=== PATIENT | female | born 1980 | race Caucasian/White ===

== ENCOUNTER 2022-05-27 12:52 | Emergency (ER) | payer OTHER, SELFPAY ==
--- NOTE | ~2022-05-27 | XR_ITS ---
EXAMINATION: XR foot LT min 3V, XR ankle LT min 3V CLINICAL INFORMATION: Reason for Exam lateral foot pain s/p injury COMPARISON: None. TECHNIQUE: AP, lateral, and oblique views of the foot and 2 views of the ankle FINDINGS: Acute transversely oriented extra-articular fracture of the base of the fifth metatarsal diaphysis. Joint spaces are maintained without significant degenerative change. Accessory ossicle at the base of the fifth metatarsal. Mild soft tissue swelling along the lateral aspect of the ankle. No joint effusion. XR/XR ankle LT min 3V IMPRESSION: 1. Acute transversely oriented extra-articular fracture of the base of the fifth metatarsal diaphysis. 2. Mild soft tissue swelling along the lateral aspect of the ankle.
--- NOTE | ~2022-05-27 | XR_ITS ---
EXAMINATION: XR foot LT min 3V, XR ankle LT min 3V CLINICAL INFORMATION: Reason for Exam lateral foot pain s/p injury COMPARISON: None. TECHNIQUE: AP, lateral, and oblique views of the foot and 2 views of the ankle FINDINGS: Acute transversely oriented extra-articular fracture of the base of the fifth metatarsal diaphysis. Joint spaces are maintained without significant degenerative change. Accessory ossicle at the base of the fifth metatarsal. Mild soft tissue swelling along the lateral aspect of the ankle. No joint effusion. XR/XR foot LT min 3V IMPRESSION: 1. Acute transversely oriented extra-articular fracture of the base of the fifth metatarsal diaphysis. 2. Mild soft tissue swelling along the lateral aspect of the ankle.
[2022-05-27 12:59] VITALS: BP 122/80; PULSE 92; RESP 16; TEMP 36.4; O2SAT 100; BMI 23.4
--- NOTE | 2022-05-27 13:00 | ED_ITS ---
HPI - Extremity Injury (Lower) General Chief Complaint: Extremity Injury, Lower <MARGARITA Wylie - Last Filed: 05/27/22 13:01> Stated Complaint: L leg inj 05/27/22 <MARGARITA Wylie - Last Filed: 05/27/22 13:01> Time Seen by Provider: 05/27/22 15:49 <MARGARITA Wylie - Last Filed: 05/27/22 13:01> Source: patient <Jazzy Goodrich CNP - Last Filed: 05/27/22 17:24> Mode of arrival: ambulatory <Jazzy Goodrich CNP - Last Filed: 05/27/22 17:24> Limitations: no limitations <Jazzy Goodrich CNP - Last Filed: 05/27/22 17:24> History of Present Illness HPI Narrative: Patient is a 41-year-old female who presents emergency department for evaluation of left lateral foot pain. She states that she slipped down approximately 3 stairs prior to arrival, mechanical fall. She has been unable to bear weight, reporting swelling and tenderness to this lateral aspect. Also reporting pain to lateral malleolus. Denies any prior injury such as fracture dislocation. States currently trying to become , however began menses to day. She is additionally requesting screening for sexually transmitted infections discussed with patient will screen for chlamydia and gonorrhea, further screening would require outpatient follow-up with primary care provider, currently asymptomatic. Declines prophylactic treatment. Advised she will be made aware of positive results by phone call within a few days, she may also axis her results via the patient portal. <Jazzy Goodrich CNP - Last Filed: 05/27/22 17:24> Related Data Home Medications: Previous Rx's Medication Instructions Recorded oxycodone 5 mg tablet 5 mg PO Q6H PRN pain #14 tabs 05/27/22 <MARGARITA Wylie - Last Filed: 05/27/22 13:01> Allergies/Adverse Reactions: Allergies Allergy/AdvReac Type Severity Reaction Status Date / Time No Known Allergies Allergy Verified 05/27/22 13:03 <MARGARITA Wylie - Last Filed: 05/27/22 13:01> Review of Systems Review of Systems: Yes all other systems are reviewed and are negative <Jazzygeorgette Raoe SHREE Goodrich - Last Filed: 05/27/22 17:24> FORMERLY [facility], [facility] Past Medical History Attestation statement: The following information was validated with the patient. <Jazzy Smith SHREE Goodrich - Last Filed: 05/27/22 17:24> Source: old records reviewed <Jazzy Smith SHREE Goodrich - Last Filed: 05/27/22 17:24> Social History Social History: Social History Advance Directives: No Advance Directives Information Provided: No <MARGARITA Wylie - Last Filed: 05/27/22 13:01> Physical Exam Vital Signs: Vital Signs: Last Vital Signs Temp 97.6 F 05/27/22 12:59 Pulse 92 05/27/22 12:59 Resp 16 05/27/22 12:59 BP 122/80 05/27/22 12:59 Pulse Ox 100 05/27/22 12:59 O2 Del Method 05/27/22 12:59 BMI result Body Mass Index 23.4 <MARGARITA Wylie - Last Filed: 05/27/22 13:01> Vital Signs: Last Vital Signs Temp 97.6 F 05/27/22 12:59 Pulse 92 05/27/22 12:59 Resp 16 05/27/22 12:59 BP 122/80 05/27/22 12:59 Pulse Ox 100 05/27/22 12:59 O2 Del Method 05/27/22 12:59 BMI result Body Mass Index 23.4 <Jazzy Goodrich CNP - Last Filed: 05/27/22 17:24> Appearance: Alert.?Oriented to person, place and time. No acute distress.?Normal affect.?? Neck: Normal inspection.? Neck supple.?? CVS: Heart sounds normal. Normal heart rate and rhythm.? Pulses normal.?? Respiratory: No respiratory distress.? Lung sounds clear to auscultation bilaterally?? Abdomen: Soft and non-tender. Skin: Skin warm and dry.? Normal skin color.? Extremities: Localized swelling and tenderness upon palpation at the base of the 5th metatarsal, localized swelling to the lateral malleolus. 2+ DP/PT pulse bilaterally. Neuro: Moves all extremities spontaneously. Sensation intact bilaterally. No focal neuro deficits. <Jazzy Goodrich CNP - Last Filed: 05/27/22 17:24> Course Course Course Narrative: RME - 41 y/o female with no medical problems presents to the ER with severe left lateral foot pain after she slipped going down the stairs 1 hour ago. Unable to bear weight. Lateral foot is swollen and tender. Slight swelling of lateral malleolus as well. XRs ordered. <MARGARITA Wylie - Last Filed: 05/27/22 13:01> Medical Decision Making Medical Decision Making [facility] Narrative: Patient is a 41-year-old female who presents emergency department for evaluation of traumatic left foot/ankle pain. Mechanical fall. Reviewed x-ray imaging obtained from rapid medical examination which is consistent with proximal 5th metatarsal fracture, extremity is neurovascularly intact distally, she was placed in a posterior short-leg splint, provided with crutches, nonweightbearing, discussed rest, ice, acetaminophen/ibuprofen, oxycodone for severe pain, I reviewed MASSPaT, in prescription sent without complication. Requesting screening for chlamydia/gonorrhea, currently asymptomatic and declining prophylactic treatment. Advised patient she will be contacted of positive results, she will you results on patient portal. Advised outpatient follow-up with Orthopedics, provided with contact information. Reviewed worrisome signs and symptoms that would warrant re-evaluation in the emergency department. She verbalizes understanding <Jazzy Goodrich CNP - Last Filed: 05/27/22 17:24> Lab Data [facility] Lab Attestation statement: I reviewed the patient's lab results. <Jazzy Goodrich CNP - Last Filed: 05/27/22 17:24> Independent Interpretation I performed an independent interpretation of an: Plain X-Ray (I reviewed x-ray imaging of the left foot/ankle and agree with radiologist impression) <Jazzy Goodrich CNP - Last Filed: 05/27/22 17:24> Radiology Impression Discussion of test interpretation with radiology: I have reviewed the radiologist's reading. <Jazzy Goodrich CNP - Last Filed: 05/27/22 17:24> Radiologist Impression: XR/XR foot LT min 3V IMPRESSION: 1.? Acute transversely oriented extra-articular fracture of the base of the fifth metatarsal diaphysis. 2.? Mild soft tissue swelling along the lateral aspect of the ankle. <Jazzy Goodrich CNP - Last Filed: 05/27/22 17:24> Independent Historian Clinical information obtained from an independent historian. History obtained from or confirmed by: Spouse (Her is present at bedside to confirms history) <Jazzy Goodrich CNP - Last Filed: 05/27/22 17:24> Prescription Management I considered prescription management with: Pain Medication <Jazzy Goodrich CNP - Last Filed: 05/27/22 17:24> Discharge Plan Discharge Clinical Impression: Fracture of fifth metatarsal bone of left foot <MARGARITA Wylie - Last Filed: 05/27/22 13:01> Patient Disposition: Home, Self-Care <MARGARITA Wylie - Last Filed: 05/27/22 13:01> Instructions: Foot Fracture in Adults (ED) <MARGARITA Wylie - Last Filed: 05/27/22 13:01> Additional Instructions: A splint has been put in place tear left foot, this should remain in place at all times. It cannot get wet. Apply ice to the area for 10-15 minutes 3-4 times daily. Use the crutches at all times so that you are not putting any weight on foot. You can take ibuprofen 200 mg, 3 tablets (600mg) every 6-8 hours as needed for pain, in addition to Tylenol 500 mg, 2 tablets (1,000mg) every 4-6 hours as needed for pain, but not to exceed 3 doses daily (3,000mg).? A prescription for oxycodone was sent to your pharmacy to use for severe pain. This medication is a narcotic, it may be addictive, and it can make you drowsy. You should not drive, drink alcohol, work while taking this medication. You have been given contact information for the Orthopedic Department, bone doctor, to follow up with. Please call their office 1st thing tomorrow morning to schedule follow-up appointment You may return back to emergency department with any new or worsening symptoms or concerns. <MARGARITA Wylie - Last Filed: 05/27/22 13:01> Prescriptions: New oxycodone 5 mg tablet 5 mg PO Q6H PRN (Reason: pain) Qty: 14 0RF Rx Instructions: Partial Fill upon patient request. <MARGARITA Wylie - Last Filed: 05/27/22 13:01> Referrals: Crystal Polanco PA-C [Physician Sales Program Coordinator] - (Proximal Fifth metatarsal fracture) <MARGARITA Wylie - Last Filed: 05/27/22 13:01> Interventions: ED Discharge Assessment Last Done: 05/27/22 17:16 <MARGARITA Wylie - Last Filed: 05/27/22 13:01> Discharge Date/Time: 05/27/22 17:23 <MARGARITA Wylie - Last Filed: 05/27/22 13:01>
[2022-05-27 22:28] LABS: UPreg QC Valid YES; Urine Pregnancy NEGATIVE (NEGATIVE)
[2022-05-28 01:32] LABS: CT PCR NOT DETECTED (Not Detect.); NG PCR NOT DETECTED (Not Detect.)
== END 2022-05-27 17:23 | disposition home or self-care (01) ==
PROVIDERS: Nurse Practitioner Family; Emergency Provider Emergency Medicine
DX: S92.352A Displaced fracture of fifth metatarsal bone, left foot, initial encounter for closed fracture (principal); M79.672 Pain in left foot; W10.9XXA Fall (on) (from) unspecified stairs and steps, initial encounter; Y93.9 Activity, unspecified; Y92.9 Unspecified place or not applicable; Y99.9 Unspecified external cause status; Z79.899 Other long term (current) drug therapy
CPT/HCPCS: 0353U; 29515; 73610; 73630; 81025; 99282; 99284

== ENCOUNTER 2022-06-01 | Outpatient (REF) | payer OTHER, SELFPAY ==
--- NOTE | ~2022-06-01 | XR_ITS ---
EXAMINATION: XR FOOT, LEFT CLINICAL INFORMATION: Pain. COMPARISON: Radiographs dated 05/27/2022. TECHNIQUE: AP, lateral, and oblique views of the left foot. FINDINGS: Bony mineralization is normal. There is stable alignment of a transverse fracture of the base of the left fifth metatarsal. Mild periosteal callus formation is now seen, with a persistent fracture line. An ununited accessory ossification center abuts the base of the left fifth metatarsal bone. No fracture, dislocation or joint effusion is seen. Boehler's angle is normal. There is no calcaneal spur. There is mild bunion formation of the first metatarsal head. There is mild osteoarthritic change of the first metatarsophalangeal joint. No focal soft tissue swelling, gas or foreign body is seen. XR/XR foot LT min 3V IMPRESSION: There is stable alignment of a transverse, nondisplaced fracture of the base of the left fifth proximal phalanx. Mild new periosteal callus formation is noted.
== END 2022-06-01 00:01 | disposition home or self-care (01) ==
LOC: HO.HOSX
PROVIDERS: Visit Provider Physician Assistant
DX: S92.352A Displaced fracture of fifth metatarsal bone, left foot, initial encounter for closed fracture (principal)
CPT/HCPCS: 73630; 99202

== ENCOUNTER 2022-07-02 12:29 | Outpatient (REF) | payer OTHER, SELFPAY ==
--- NOTE | ~2022-07-02 | XR_ITS ---
EXAMINATION: XR FOOT, LEFT CLINICAL INFORMATION: Pain. COMPARISON: Radiographs dated 07/02/2022. TECHNIQUE: AP, lateral, and oblique views of the left foot. FINDINGS: Bony mineralization is normal. There is again a mildly displaced fracture of the proximal right fifth metatarsal shaft. There is slight increase in distraction of fracture fragments. No new callus formation is seen. Again, there is a well-corticated accessory ossification center noted at the base of the left fifth metatarsal. No dislocation or left ankle joint effusion is seen. Boehler's angle is normal. There is moderate bunion formation. There is mild osteoarthritic change of the left first metatarsophalangeal joint. No focal soft tissue swelling, gas or foreign body is seen. XR/XR foot LT min 3V IMPRESSION: A mildly displaced fracture is redemonstrated of the proximal left fifth metatarsal shaft. No hardware failure or loosening is seen.
== END 2022-07-02 12:30 | disposition home or self-care (01) ==
LOC: HO.HOSX 12:29
PROVIDERS: Visit Provider Physician Assistant
DX: S92.352D Displaced fracture of fifth metatarsal bone, left foot, subsequent encounter for fracture with routine healing (principal); X58.XXXD Exposure to other specified factors, subsequent encounter
CPT/HCPCS: 73630; 99212

== ENCOUNTER 2022-08-01 15:17 | Emergency (ER) | payer MEDICAID, SELFPAY ==
--- NOTE | ~2022-08-01 | XR_ITS ---
EXAMINATION: XR CHEST CLINICAL INFORMATION: Shortness of breath, cough. COMPARISON: None available. TECHNIQUE: 2 views of the chest were obtained. FINDINGS: No significant abnormality is noted involving the heart, lungs, mediastinum, bony thorax or soft tissues. XR/XR chest 2V IMPRESSION: No acute cardiopulmonary process.
--- NOTE | 2022-08-01 15:30 | ED.GENADULT ---
HPI - General Adult General Chief complaint: Upper Respiratory Symptoms <MARGARITA Bass - Last Filed: 08/01/22 15:34> Stated complaint: chest congestion <MARGARITA Bass - Last Filed: 08/01/22 15:34> Time Seen by Provider: 08/01/22 17:07 <MARGARITA Bass - Last Filed: 08/01/22 15:34> Source: patient <MARGARITA Woodard - Last Filed: 08/03/22 07:04> Mode of arrival: ambulatory <MARGARITA Woodard Last Filed: 08/03/22 07:04> Limitations: no limitations <MARGARITA Woodard Last Filed: 08/03/22 07:04> History of Present Illness HPI narrative: Patient is a 41 year old assigned female at with no reported medical history presenting to the emergency department today with nasal congestion and a cough. Patient states that she has had this for the last 4 days and nothing seems to help the cough or the congestion. Patient denies any dizziness, lightheadedness, abdominal pain, nausea, vomiting, fever, chills, blurry vision, double vision, loss of vision, chest pain, difficulty breathing, shortness of breath, back pain, night sweats, pain with urination, increased urinary frequency, increased urinary urgency, blood in her urine or stool, syncope or a near syncopal episode, recent trauma or falls, bowel incontinence, bladder incontinence, bowel retention, bladder retention, or any other complaints at this time. <MARGARITA Woodard - Last Filed: 08/03/22 07:04> Onset (ago): day(s) (4) <MARGARITA Woodard - Last Filed: 08/03/22 07:04> Severity: mild <MARGARITA Woodard Last Filed: 08/03/22 07:04> Severity scale (1-10): 3 <MARGARITA Woodard Last Filed: 08/03/22 07:04> Exacerbating factors: none <MARGARITA Woodard Last Filed: 08/03/22 07:04> Associated symptoms: cough <MARGARITA Woodard Last Filed: 08/03/22 07:04> Treatments prior to arrival: none <MARGARITA Woodard Last Filed: 08/03/22 07:04> Related Data Home medications: Previous Rx's Medication Instructions Recorded oxycodone 5 mg tablet 5 mg PO Q6H PRN pain #14 tabs 05/27/22 benzonatate 100 mg capsule 100 mg PO BID PRN cough 7 days #14 08/01/22 caps doxycycline hyclate 100 mg tablet 100 mg PO BID 7 days #14 tabs 08/01/22 prednisone 20 mg tablet 20 mg PO DAILY 7 days #7 tabs 08/01/22 <MARGARITA Bass Last Filed: 08/01/22 15:34> Allergies/adverse reactions: Allergies Allergy/AdvReac Type Severity Reaction Status Date / Time No Known Allergies Allergy Verified 07/02/22 08:47 <MARGARITA Bass Last Filed: 08/01/22 15:34> Review of Systems Constitutional: Constitutional: Reports no additional constitutional complaints, Denies chills, Denies fever(s) and Denies night sweats <MARGARITA Woodard Last Filed: 08/03/22 07:04> Eyes: Eyes: Reports no additional eye complaints, Denies blurry vision, Denies change in vision, Denies diplopia, Denies eye discharge, Denies loss of vision and Denies eye pain <MARGARITA Woodard Last Filed: 08/03/22 07:04> ENT: Denies dizziness and Reports sinus pressure <MARGARITA Woodard Last Filed: 08/03/22 07:04> Cardiovascular: Cardiovascular: Reports no additional cardiovascular complaints, Denies chest pain, Denies lightheadedness, Denies Loss of Consciousness and Denies dyspnea <MARGARITA Woodard Last Filed: 08/03/22 07:04> Respiratory: Respiratory: Reports no additional respiratory complaints, Reports cough and Denies dyspnea <MARGARITA Woodard Last Filed: 08/03/22 07:04> Gastrointestinal: Gastrointestinal: Reports no additional gastrointestinal complaints, Denies abdominal pain, Denies melena, Denies hematochezia, Denies change in bowel habits and Denies change in stool character <MARGARITA Woodard Last Filed: 08/03/22 07:04> Genitourinary: Genitourinary: Denies hematuria, Denies urinary frequency, Denies dysuria, Denies urinary incontinence, Denies urinary hesitancy and Denies urinary urgency <MARGARITA Woodard - Last Filed: 08/03/22 07:04> Musculoskeletal: Musculoskeletal: Reports no additional musculoskeletal complaints, Denies numbness and Denies tingling <MARGARITA Woodard - Last Filed: 08/03/22 07:04> Neurologic: Denies dizziness, Denies loss of vision, Denies numbness and Denies tingling <MARGARITA Woodard - Last Filed: 08/03/22 07:04> Psychiatric: Psychiatric: Reports no additional psychiatric complaints <MARGARITA Woodard - Last Filed: 08/03/22 07:04> Endocrine: Endocrine: Reports no additional endocrine complaints <MARGARITA Woodard - Last Filed: 08/03/22 07:04> Hematologic/Lymphatic: Hematologic/Lymphatic: Reports no additional hematologic/lymphatic complaints <MARGARITA Woodard - Last Filed: 08/03/22 07:04> Allergic/Immunologic: Allergic/Immunologic: Reports no additional allergic/immunologic complaints <MARGARITA Woodard - Last Filed: 08/03/22 07:04> PMF Past Medical History Attestation statement: The following information was validated with the patient. <MARGARITA Woodard - Last Filed: 08/03/22 07:04> Source: old records reviewed and nursing notes reviewed <MARGARITA Woodard - Last Filed: 08/03/22 07:04> Medical History: Medical History History of high cholesterol <MARGARITA Bass - Last Filed: 08/01/22 15:34> Social History Social History: Social History Alcohol intake: never Patient Tobacco Use Status: Never used Tobacco Advance Directives: No Advance Directives Information Provided: No Current occupational status: unemployed <MARGARITA Bass - Last Filed: 08/01/22 15:34> Physical Exam ED Vital Signs: Vital Signs - 24 hr 08/01/22 15:31 Temperature 97.7 F Pulse Rate 84 Respiratory Rate 18 Blood Pressure 125/81 Pulse Oximetry 100 Oxygen Delivery Method Room Air BMI result Body Mass Index 23.5 <MARGARITA Bass - Last Filed: 08/01/22 15:34> Vital Signs - 24 hr 08/01/22 15:31 Temperature 97.7 F Pulse Rate 84 Respiratory Rate 18 Blood Pressure 125/81 Pulse Oximetry 100 Oxygen Delivery Method Room Air BMI result Body Mass Index 23.5 <MARGARITA Woodard - Last Filed: 08/03/22 07:04> Const General: cooperative, no acute distress, alert and awake <MARGARITA Woodard - Last Filed: 08/03/22 07:04> Nutritional Appearance: well nourished <MARGARITA Woodard - Last Filed: 08/03/22 07:04> Orientation/consciousness: patient oriented x3 <MARGARITA Woodard - Last Filed: 08/03/22 07:04> Limitations: no limitations <MARGARITA Woodard - Last Filed: 08/03/22 07:04> HENMT Head: Yes normal to inspection and Yes atraumatic <MARGARITA Woodard - Last Filed: 08/03/22 07:04> Ears: hearing grossly normal bilaterally and external ears normal <MARGARITA Woodard - Last Filed: 08/03/22 07:04> General nose exam: Normal external nose present, no nasal discharge noted and no epistaxis <MARGARITA Woodard - Last Filed: 08/03/22 07:04> Face and sinus: Yes normal facial exam, No abrasion and No laceration <MARGARITA Woodard - Last Filed: 08/03/22 07:04> Mouth: Normal oral and palatal mucosa present, no drooling and no muffled voice <MARGARITA Woodard - Last Filed: 08/03/22 07:04> Eyes General: appearance normal, both eyes and all related structures <MARGARITA Woodard - Last Filed: 08/03/22 07:04> Periorbital: periorbital findings normal <MARGARITA Woodard - Last Filed: 08/03/22 07:04> Eyelids: Yes eyelids normal <MARGARITA Woodard - Last Filed: 08/03/22 07:04> Conjunctivae: conjunctivae normal <Yuliana Garza PA - Last Filed: 08/03/22 07:04> Pupils: Equal, round and reactive pupils present <Yuliana Garza PA - Last Filed: 08/03/22 07:04> EOM: EOMs intact bilaterally <Yuliana Garza PA - Last Filed: 08/03/22 07:04> Neck Neck: Yes normal visual inspection, Yes full ROM and Yes no lymphadenopathy <Yuliana Garza ME - Last Filed: 08/03/22 07:04> Chest Chest palpation & inspection: normal inspection of the chest <Yuliana Garza ME - Last Filed: 08/03/22 07:04> Resp Effort & Inspection: normal respiratory effort and able to speak in complete sentences <Yuliana Garza ME - Last Filed: 08/03/22 07:04> Auscultation: clear to auscultation bilaterally <Yuliana Garza ME - Last Filed: 08/03/22 07:04> Cardio Rate: regular rate <Yuliana Garza ME - Last Filed: 08/03/22 07:04> Rhythm: regular rhythm <Yuliana Garza ME - Last Filed: 08/03/22 07:04> GI Inspection: Yes normal to inspection <Yuliana Garza PA - Last Filed: 08/03/22 07:04> Neuro General: patient oriented x3 and moves all extremities <Yuliana Garza ME - Last Filed: 08/03/22 07:04> Cranial nerves: Yes Equal, round and reactive pupils present <Yuliana Garza PA - Last Filed: 08/03/22 07:04> Cognition (Neuro): normal cognition <Yuliana Garza PA - Last Filed: 08/03/22 07:04> Motor exam (neuro): 5/5 motor strength present throughout <Yuliana Garza PA - Last Filed: 08/03/22 07:04> Sensory Exam: Normal double simultaneous stimulation for sensation <Yuliana Garza PA - Last Filed: 08/03/22 07:04> Coordination: [id number] test normal <Yuliana Wrightfarrah ME - Last Filed: 08/03/22 07:04> Extrem General: Yes normal to inspection, Yes full ROM and Yes capillary refill normal <MARGARITA Woodard - Last Filed: 08/03/22 07:04> Psych Appearance: grossly normal <MARGARITA Woodard - Last Filed: 08/03/22 07:04> Mental Status: mental status grossly normal <MARGARITA Woodard - Last Filed: 08/03/22 07:04> Affect: normal affect <MARGARITA Woodard - Last Filed: 08/03/22 07:04> Attitude: cooperative <MARGARITA Woodard - Last Filed: 08/03/22 07:04> Thought process: Normal thought process present <MARGARITA Woodard Last Filed: 08/03/22 07:04> Thought content: Normal thought content present <MARGARITA Woodard Last Filed: 08/03/22 07:04> Insight: Good insight present (Psych) <MARGARITA Woodard Last Filed: 08/03/22 07:04> Course Course Course Narrative: This is an RME: Additional HPI, ROS, PE not included below will be deferred to primary provider. 41 year old female presents to ED with a cold for 4 days. She reports she has been taking nyquil with no relief of symptoms. Patient endorses sore throat, SOB, cough and general malaise. Plan: Flu, COVID swab, imaging <MARGARITA Bass - Last Filed: 08/01/22 15:34> Medical Decision Making Medical Decision Making MDM Narrative: Patient is a 41 year old assigned female at with no reported medical history presenting to the emergency department today with a cough and congestion. Patient's physical exam showed a congested individual but was otherwise unremarkable. Patient's chest x-ray showed no acute process. Patient's COVID/Influenza tests were negative. I explained my physical exam findings as well as all test results to the patient. I answered all questions asked by the patient. I stressed the importance of the patient taking her medication as prescribed. I stressed the importance of the patient following up with her primary care provider. I stressed the importance of the patient returning to the emergency department immediately if her symptoms were to worsen or if she were to develop any dizziness, shortness of breath, difficulty breathing, chest pain, blurry vision, loss of vision, nausea, vomiting, abdominal pain, fever, chills, back pain, or any other complaints. Patient verbalized agreement and understanding with this treatment plan and discharge. <MARGARITA Woodard Last Filed: 08/03/22 07:04> Differential Diagnosis Differential Diagnoses: The differential diagnosis associated with the presentation includes <MARGARITA Woodard Last Filed: 08/03/22 07:04> sinusitis <MARGARITA Woodard Last Filed: 08/03/22 07:04> Lab Data MDM Lab Attestation statement: I reviewed the patient's lab results. <MARGARITA Woodard Last Filed: 08/03/22 07:04> Labs: Lab Results 08/01/22 08/01/22 08/01/22 Range/Units 16:31 16:31 16:31 Beta HCG, Quant < 2 mIU/mL COVID-19 (LE) Negative (Negative) COVID-19 Clin Com See Note Influenza Type A (YOSELYN) Negative (Negative) Influenza Type B (YOSELYN) Negative (Negative) Influenza A & B Note See Note <MARGARITA Bass Last Filed: 08/01/22 15:34> Lab Results 08/01/22 08/01/22 08/01/22 Range/Units 16:31 16:31 16:31 Beta HCG, Quant < 2 mIU/mL COVID-19 (LE) Negative (Negative) COVID-19 Clin Com See Note Influenza Type A (YOSELYN) Negative (Negative) Influenza Type B (YOSELYN) Negative (Negative) Influenza A & B Note See Note <MARGARITA Woodard Last Filed: 08/03/22 07:04> Independent Interpretation I performed an independent interpretation of an: Plain X-Ray <MARGARITA Woodard Last Filed: 08/03/22 07:04> Interpretation: My interpretation is in agreement with the radiologist's impression of this imaging study. EXAMINATION: XR CHEST CLINICAL INFORMATION: Shortness of breath, cough. COMPARISON: None available. TECHNIQUE: 2 views of the chest were obtained. FINDINGS: No significant abnormality is noted involving the heart, lungs, mediastinum, bony thorax or soft tissues. XR/XR chest 2V IMPRESSION: No acute cardiopulmonary process. Dictated By: Tyler Solomon MD Signed By: Electronically signed by Tyler Solomon MD 08/01/22 2327 <MARGARITA Woodard - Last Filed: 08/03/22 07:04> Discharge Plan Discharge Clinical Impression: Upper respiratory infection <MARGARITA Bass Last Filed: 08/01/22 15:34> Patient Disposition: Home, Self-Care <MARGARITA Bass Last Filed: 08/01/22 15:34> Instructions: Upper Respiratory Infection (DC) <MARGARITA Bass Last Filed: 08/01/22 15:34> Additional Instructions: Follow up with your primary care provider. Return to the emergency department immediately if your symptoms worsen or if you develop any dizziness, shortness of breath, difficulty breathing, chest pain, blurry vision, loss of vision, nausea, vomiting, abdominal pain, fever, chills, back pain, or any other complaints. <MARGARITA Bass Last Filed: 08/01/22 15:34> Prescriptions: New benzonatate 100 mg capsule 100 mg PO BID PRN (Reason: cough) 7 Days Qty: 14 0RF doxycycline hyclate 100 mg tablet 100 mg PO BID 7 Days Qty: 14 0RF prednisone 20 mg tablet 20 mg PO DAILY 7 Days Qty: 7 0RF No Action oxycodone 5 mg tablet 5 mg PO Q6H PRN (Reason: pain) Qty: 14 0RF Rx Instructions: Partial Fill upon patient request. <MARGARITA Bass Last Filed: 08/01/22 15:34> Referrals: Corona Olivares MD [Primary Care Provider] - <MARGARITA Bass - Last Filed: 08/01/22 15:34> Stand Alone Forms: Work/School Release <MARGARITA Bass - Last Filed: 08/01/22 15:34> Interventions: ED Discharge Assessment Last Done: 08/01/22 17:35 <MARGARITA Bass - Last Filed: 08/01/22 15:34> Discharge Date/Time: 08/01/22 17:36 <MARGARITA Bass - Last Filed: 08/01/22 15:34> Print Language: Kiswahili <MARGARITA Bass - Last Filed: 08/01/22 15:34>
[2022-08-01 15:31] VITALS: BP 125/81; PULSE 84; RESP 18; TEMP 36.5; O2SAT 100; BMI 23.5
[2022-08-01 16:50] LABS: COVID-19 Test Negative (Negative); IDNOW Serial# 08D9AD1C
[2022-08-01 16:56] LABS: IDNOW Serial# BCCEAD1C; Influenza A Negative (Negative); Influenza B2 Negative (Negative)
[2022-08-01 17:02] LABS: HCG Quantitative < 2 mIU/mL
== END 2022-08-01 17:36 | disposition home or self-care (01) ==
PROVIDERS: Physician Assistant; Emergency Provider Student in an Organized Health Care Education/Training Program; PCP Internal Medicine
DX: J06.9 Acute upper respiratory infection, unspecified (principal); R06.02 Shortness of breath; Z20.822 Contact with and (suspected) exposure to COVID-19; Z20.828 Contact with and (suspected) exposure to other viral communicable diseases; Z79.899 Other long term (current) drug therapy
CPT/HCPCS: 36415; 71046; 84702; 87502; 87635; 99282; 99283

== ENCOUNTER 2022-08-17 20:58 | Emergency (ER) | payer MEDICAID, SELFPAY ==
[2022-08-17 21:35] VITALS: BP 106/61; PULSE 90; RESP 18; TEMP 36.6; O2SAT 98; BMI 23.1
[2022-08-17 22:59] VITALS: BP 113/71; PULSE 86; RESP 14; TEMP 37.5; O2SAT 100
--- NOTE | 2022-08-17 23:26 | ED_ITS ---
HPI - Extremity Problem General Chief complaint: Extremity Injury, Lower Stated complaint: L leg pain Time Seen by Provider: 08/17/22 23:25 Source: patient Mode of arrival: ambulatory Limitations: no limitations History of Present Illness HPI Narrative: patient with No significant back problem been sick for 2 weeks with cough loss of taste sensation seen here on 08/02 workup was negative comes here for pain in the left leg since yesterday no back pain no recent fall or trauma no bladder bowel involved Related Data Previous Rx's Medication Instructions Recorded oxycodone 5 mg tablet 5 mg PO Q6H PRN pain #14 tabs 05/27/22 benzonatate 100 mg capsule 100 mg PO BID PRN cough 7 days #14 08/01/22 caps doxycycline hyclate 100 mg tablet 100 mg PO BID 7 days #14 tabs 08/01/22 prednisone 20 mg tablet 20 mg PO DAILY 7 days #7 tabs 08/01/22 albuterol sulfate 90 mcg/actuation 2 puff inhalation Q4-6H PRN 08/18/22 aerosol inhaler (ProAir HFA) bronchospasm #8.5 grams ibuprofen 600 mg tablet 600 mg PO Q6H PRN fever or pain 08/18/22 #30 tabs prednisone 20 mg tablet 40 mg PO DAILY #10 tabs 08/18/22 Allergies Allergy/AdvReac Type Severity Reaction Status Date / Time No Known Allergies Allergy Verified 08/17/22 21:39 Review of Systems Review of Systems: Yes all other systems are reviewed and are negative [facility] Past Medical History Medical History History of high cholesterol Social History Social History Alcohol intake: never Patient Tobacco Use Status: Never used Tobacco Advance Directives: No Advance Directives Information Provided: No Current occupational status: unemployed Physical Exam Vital Signs: Vital Signs: Last Vital Signs Temp 98.3 F 08/18/22 00:50 Pulse 75 08/18/22 00:50 Resp 14 08/18/22 00:50 BP 134/72 08/18/22 00:50 Pulse Ox 96 08/18/22 00:50 O2 Del Method Room Air 08/18/22 00:50 BMI result Body Mass Index 23.1 Appearance: Alert. Oriented X3. No acute distress. Frequent dry cough ENT: Pharynx normal. Oral Mucosa moist Neck: Normal inspection. Neck supple. CVS: Normal heart rate and rhythm. Pulses normal. Respiratory: No respiratory distress. Equal air entry bilateral, bilateral wheezing with frequent cough Abdomen: Soft and nontender. Bowel sounds are present, no mass palpable, no CVA tenderness Skin: Skin warm and dry. Normal skin color. Normal skin turgor. No midline back tenderness Extremities: No lower extremity edema. No calf tenderness tenderness at the greater tuberosity of left hip, pain increases on abduction Neuro: Oriented X 3. No motor deficit. No sensory deficit.No cerebellar signs , cranial nerves II-XII intact Medications Administered Discontinued Medications Generic Name Dose Route Start Last Admin Trade Name Freq PRN Reason Stop Dose Admin Albuterol Sulfate 5 mg/ 0 mg 08/17/22 23:35 08/17/22 23:48 Albuterol/Ipratropium 3 ml INHALE 08/17/22 23:36 1 each ONCE ONE Administration Dexamethasone 10 mg 08/17/22 23:35 08/17/22 23:58 Dexamethasone 2 Mg Tablet PO 08/17/22 23:36 10 mg ONCE ONE Administration Guaifenesin/Codeine Phosphate 10 ml 08/17/22 23:35 08/17/22 23:58 Guaifen/Codeine Sf 200/20/10ml 10 Ml Liquid PO 08/17/22 23:36 10 ml ONCE ONE Administration Tramadol HCl 50 mg 08/17/22 23:37 08/17/22 23:58 Tramadol Hcl 50 Mg Tablet PO 08/17/22 23:38 50 mg ONCE ONE Administration Medical Decision Making Medical Decision Making [facility] Narrative: . Patient with Acute bronchitis with iliotibial syndrome will prescribe prednisone inhaler and ibuprofen for pain Lab Data [facility] Lab Attestation statement: I reviewed the patient's lab results. Labs: Lab Results 08/17/22 Range/Units 23:51 COVID-19 (LE) Negative (Negative) COVID-19 Clin Com See Note Discharge Plan Discharge Clinical Impression: Acute bronchitis, Iliotibial band syndrome, left leg Patient Disposition: Home, Self-Care Instructions: Acute Bronchitis (ED), Iliotibial Band Syndrome (ED) Additional Instructions: Take pain medication as prescribed along with prednisone and inhaler Follow with PCP if not better Prescriptions: New albuterol sulfate [ProAir HFA] 90 mcg/actuation HFA aerosol inhaler 2 puff inhalation Q4-6H PRN (Reason: bronchospasm) Qty: 8.5 0RF prednisone 20 mg tablet 40 mg PO DAILY Qty: 10 0RF ibuprofen 600 mg tablet 600 mg PO Q6H PRN (Reason: fever or pain) Qty: 30 0RF No Action oxycodone 5 mg tablet 5 mg PO Q6H PRN (Reason: pain) Qty: 14 0RF Rx Instructions: Partial Fill upon patient request. benzonatate 100 mg capsule 100 mg PO BID PRN (Reason: cough) 7 Days Qty: 14 0RF doxycycline hyclate 100 mg tablet 100 mg PO BID 7 Days Qty: 14 0RF prednisone 20 mg tablet 20 mg PO DAILY 7 Days Qty: 7 0RF Interventions: ED Discharge Assessment Last Done: 08/18/22 00:50 Discharge Date/Time: 08/18/22 00:51
[2022-08-17 23:52] VITALS: PULSE 90; RESP 16; O2SAT 98
[2022-08-17] MEDS: guaiFEN/Codeine SF 200/20/10ML 10 ML LIQUID PO (23:58)
[2022-08-17] MEDS: traMADoL HCL 50 MG TABLET PO (23:58)
[2022-08-17] MEDS: dexAMETHasone 2 MG TABLET 10 MG PO (23:58)
[2022-08-18 00:21] LABS: COVID-19 Test Negative (Negative); IDNOW Serial# 6674DD1D
[2022-08-18 00:50] VITALS: BP 134/72; PULSE 75; RESP 14; TEMP 36.8; O2SAT 96
== END 2022-08-18 00:51 | disposition home or self-care (01) ==
PROVIDERS: Emergency Provider Internal Medicine; PCP Internal Medicine
DX: J20.9 Acute bronchitis, unspecified (principal); M76.32 Iliotibial band syndrome, left leg; Z20.822 Contact with and (suspected) exposure to COVID-19; M79.605 Pain in left leg; Z79.899 Other long term (current) drug therapy
CPT/HCPCS: 87635; 94640; 99284; J8540

== ENCOUNTER 2022-10-29 01:16 | Emergency (ER) | payer MEDICAID, SELFPAY ==
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
[2022-10-29 01:20] VITALS: BP 135/95; PULSE 92; RESP 18; TEMP 36.3; O2SAT 100; BMI 24.2
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
== END 2022-10-29 03:32 | disposition home or self-care (01) ==
PROVIDERS: Emergency Provider Emergency Medicine
DX: S40.012A Contusion of left shoulder, initial encounter (principal); Y04.2XXA Assault by strike against or bumped into by another person, initial encounter; Z72.89 Other problems related to lifestyle; Z63.0 Problems in relationship with spouse or partner; Y93.9 Activity, unspecified; Y92.039 Unspecified place in apartment as the place of occurrence of the external cause; Y99.9 Unspecified external cause status
CPT/HCPCS: 73030; 73060; 73070; 99282; 99283

== ENCOUNTER 2023-03-17 17:41 | Emergency (ER) | payer MEDICAID, SELFPAY ==
[2023-03-17 18:44] VITALS: BP 116/68; PULSE 72; RESP 16; TEMP 36.9; O2SAT 97; BMI 27.7
--- NOTE | 2023-03-17 19:18 | ED_ITS ---
HPI - Wound/Laceration General Chief Complaint: Wound/Laceration Stated Complaint: laceration left thumb Time Seen by Provider: 03/17/23 19:07 Source: patient Mode of arrival: ambulatory Limitations: no limitations History of Present Illness HPI narrative: 42yo female right hand dominant here with complaints of laceration to left thumb from a knife which she cutting food with. No associated numbness, tingling or weakness. UTD with immunizations. Related Data Previous Rx's Medication Instructions Recorded oxycodone 5 mg tablet 5 mg PO Q6H PRN pain #14 tabs 05/27/22 benzonatate 100 mg capsule 100 mg PO BID PRN cough 7 days #14 08/01/22 caps doxycycline hyclate 100 mg tablet 100 mg PO BID 7 days #14 tabs 08/01/22 prednisone 20 mg tablet 20 mg PO DAILY 7 days #7 tabs 08/01/22 albuterol sulfate 90 mcg/actuation 2 puff inhalation Q4-6H PRN 08/18/22 aerosol inhaler (ProAir HFA) bronchospasm #8.5 grams ibuprofen 600 mg tablet 600 mg PO Q6H PRN fever or pain 08/18/22 #30 tabs prednisone 20 mg tablet 40 mg (2 x 20 mg) PO DAILY #10 tabs 08/18/22 Allergies Allergy/AdvReac Type Severity Reaction Status Date / Time No Known Allergies Allergy Verified 03/17/23 18:43 Review of Systems 2 Review of Systems: Yes all other systems are reviewed and are negative Constitutional: Constitutional: Reports no additional constitutional complaints, Denies body ache(s), Denies chills, Denies fever(s), Denies headache(s) and Denies weakness Eyes: Eyes: Reports no additional eye complaints and Denies change in vision ENT: Reports system reviewed and no additional complaints, except as documented, Denies dizziness, Denies headache(s), Denies nasal congestion, Denies nasal discharge and Denies neck pain Cardiovascular: Cardiovascular: Reports no additional cardiovascular complaints, Denies chest pain, Denies leg edema and Denies dyspnea Respiratory: Respiratory: Reports no additional respiratory complaints, Denies cough and Denies dyspnea Gastrointestinal: Gastrointestinal: Reports no additional gastrointestinal complaints, Denies abdominal pain, Denies diarrhea, Denies nausea and Denies vomiting Genitourinary: Genitourinary: Reports no additional female genitourinary complaints and Denies urinary incontinence Musculoskeletal: Musculoskeletal: Reports no additional musculoskeletal complaints, Denies back pain, Denies arthralgias, Denies joint swelling, Denies neck pain, Denies numbness and Denies tingling Integumentary/Breasts: Skin/Breast: Reports system reviewed and no additional complaints, except as docu, Denies rash and Reports wounds Neurologic: Reports system reviewed and no additional complaints, except as documented, Denies Abnormal speech present, Denies dizziness, Denies headache(s), Denies numbness, Denies tingling and Denies weakness [facility] Past Medical History Attestation statement: The following information was validated with the patient. Source: old records reviewed and nursing notes reviewed Medical History History of high cholesterol Social History Social History Alcohol intake: never Patient Tobacco Use Status: Never used Tobacco Current occupational status: unemployed Physical Exam 2 Vital Signs: Vital Signs: Last Vital Signs Temp 98.4 F 03/17/23 18:44 Pulse 72 03/17/23 18:44 Resp 16 03/17/23 18:44 BP 116/68 03/17/23 18:44 Pulse Ox 97 03/17/23 18:44 O2 Del Method Room Air 03/17/23 18:44 BMI result Body Mass Index 27.7 Const: General: cooperative, healthy appearing, comfortable and no acute distress Orientation/consciousness: patient oriented x3 Limitations: no limitations HEENT: Head: Yes normal to inspection Ears: hearing grossly normal bilaterally General nose exam: Normal external nose present Face and sinus: Yes normal facial exam Mouth: Normal oral and palatal mucosa present Throat: Yes posterior oropharynx normal Eyes: General: appearance normal, both eyes and all related structures P upils: Equal, round and reactive pupils present Neck: Neck: Yes normal visual inspection Chest: Chest palpation & inspection: normal inspection of the chest Resp: Effort & Inspection: normal respiratory effort Auscultation: clear to auscultation bilaterally Cardio: Rate: regular rate Rhythm: regular rhythm Peripheral pulses: P eripheral pulses 2+ throughout GI: Inspection: Yes normal to inspection Palpation (GI): Soft to palpation and nontender Auscultation: normal bowel sounds Back/Spine/Pelvis: Thoracic/Lumbar Spine: thoracic and lumbar spine normal to inspection Skin: General skin exam: no rashes or lesions noted Neuro: General: patient oriented x3, no focal motor deficits and normal sensation to monofilament Cranial nerves: Yes Equal, round and reactive pupils present Cognition (Neuro): normal cognition Speech: No Abnormal speech present Gait exam (Neuro): Normal gait present Motor exam (neuro): 5/5 motor strength present throughout Extrem: Hand/finger images: 1. 3cm laceration-bleeding controlled. Normal passive and active ROM of digit. Normal sensation Medications Administered Discontinued Medications Generic Name Dose Route Start Last Admin Trade Name Freq PRN Reason Stop Dose Admin Lidocaine HCl 2 ml 03/17/23 19:18 03/17/23 19:32 Lidocaine Hcl 1 % Mpf 2 Ml Vial INFILTRATI 03/17/23 19:19 2 ml ONCE ONE Administration Lidocaine HCl 2 ml 03/17/23 19:18 03/17/23 19:33 Lidocaine Hcl 1 % Mpf 2 Ml Vial INFILTRATI 03/17/23 19:19 2 ml ONCE ONE Administration Medical Decision Making Medical Decision Making MDM Narrative: 42yo female right hand dominant here with complaints of laceration to left thumb from a knife which she cutting food with. No associated numbness, tingling or weakness. UTD with immunizations. 3cm laceration-bleeding controlled. Normal passive and active ROM of digit. Normal sensation See procedure note Differential Diagnosis Differential Diagnoses: The differential diagnosis associated with the presentation includes laceration No clinical findings concerning for tendon injury, bony abnormality or vascular injury Admission/Observation Consideration of admission/observation: Escalation of care including admission/observation considered No clinical findings concerning for tendon injury, bony abnormality or vascular injury suggesting need for advanced imaging, urgent orthopedic consultation Independent Historian Clinical information obtained from an independent historian. History obtained from or confirmed by: Spouse Tests considered The following testing was considered but not selected: No clinical findings concerning for tendon injury, bony abnormality or vascular injury suggesting need for advanced imaging, Prescription Management I considered prescription management with: Antibiotic Procedures Laceration Laceration 1: Site: hand (1st digit ) Side (If applicable): left Size (cm): 3 Description: linear Depth: simple, single layer Local Anesthetic: lidocaine 1% Amount of anesthesia used (mL): 2 Pre-repair: wound explored, irrigated extensively (1 L NS) and deep structures intact Skin layer closed with: vicryl Size (cm): 5-0 Number of sutures: 4 Technique: simple, interrupted Discharge Plan Discharge Clinical Impression: Laceration Patient Disposition: Home, Self-Care Instructions: Finger Laceration (ED) Additional Instructions: Sutures out in 7-10 days Wash with soap and water daily but no soaking water Return for signs of infection (redness, drainage, swelling) Prescriptions: No Action oxycodone 5 mg tablet 5 mg PO Q6H PRN (Reason: pain) Qty: 14 0RF Rx Instructions: Partial Fill upon patient request. benzonatate 100 mg capsule 100 mg PO BID PRN (Reason: cough) 7 Days Qty: 14 0RF doxycycline hyclate 100 mg tablet 100 mg PO BID 7 Days Qty: 14 0RF prednisone 20 mg tablet 20 mg PO DAILY 7 Days Qty: 7 0RF albuterol sulfate [ProAir HFA] 90 mcg/actuation HFA aerosol inhaler 2 puff inhalation Q4-6H PRN (Reason: bronchospasm) Qty: 8.5 0RF prednisone 20 mg tablet 40 mg PO DAILY Qty: 10 0RF ibuprofen 600 mg tablet 600 mg PO Q6H PRN (Reason: fever or pain) Qty: 30 0RF Referrals: Physician,Unknown J [Primary Care Provider] -
[2023-03-17] MEDS: Lidocaine HCl 1 % MPF 2 ML VIAL INFILTRATI ×2 (19:32→19:33)
[2023-03-17] MEDS: Diphth,Pertus(ACell),Tet Adult 0.5 ML SYRINGE IM (20:07)
== END 2023-03-17 20:11 | disposition home or self-care (01) ==
PROVIDERS: Emergency Provider Emergency Medicine
DX: S61.012A Laceration without foreign body of left thumb without damage to nail, initial encounter (principal); W26.0XXA Contact with knife, initial encounter; Y93.G1 Activity, food preparation and clean up; Y92.030 Kitchen in apartment as the place of occurrence of the external cause; Y99.9 Unspecified external cause status
CPT/HCPCS: 12002; 90471; 90715; 99283; 99284

== ENCOUNTER 2023-04-01 14:24 | Emergency (ER) | payer MEDICAID, SELFPAY ==
--- NOTE | 2023-04-01 14:25 | ED.GENADULT ---
HPI - General Adult General Chief complaint: General Medical Stated complaint: suture removal Source: patient Mode of arrival: ambulatory Limitations: no limitations History of Present Illness HPI narrative: This is a 42-year-old female presenting for suture removal of sutures to left thumb she had them placed on 03/17/2023 after cutting herself with a knife on accident. Patient reports that she has 4 sutures. No complaints associated to this laceration. No numbness, tingling, fevers or chills Related Data Previous Rx's Medication Instructions Recorded oxycodone 5 mg tablet 5 mg PO Q6H PRN pain #14 tabs 05/27/22 benzonatate 100 mg capsule 100 mg PO BID PRN cough 7 days #14 08/01/22 caps doxycycline hyclate 100 mg tablet 100 mg PO BID 7 days #14 tabs 08/01/22 prednisone 20 mg tablet 20 mg PO DAILY 7 days #7 tabs 08/01/22 albuterol sulfate 90 mcg/actuation 2 puff inhalation Q4-6H PRN 08/18/22 aerosol inhaler (ProAir HFA) bronchospasm #8.5 grams ibuprofen 600 mg tablet 600 mg PO Q6H PRN fever or pain 08/18/22 #30 tabs prednisone 20 mg tablet 40 mg (2 x 20 mg) PO DAILY #10 tabs 08/18/22 Allergies Allergy/AdvReac Type Severity Reaction Status Date / Time No Known Allergies Allergy Verified 04/01/23 14:28 Review of Systems Review of Systems: Constitutional : No Fever, No Chills, Cardiovascular : No Chest Pain, No SOB Respiratory : No Dyspnea Gastrointestinal : No abdominal pain Musculoskeletal : No Joint Swelling Skin : No rash, positive skin laceration (healing)_ Neuro : No Weakness, No Numbness Psych : No SI/HI Yes all other systems are reviewed and are negative [facility] Past Medical History Attestation statement: The following information was validated with the patient. Source: old records reviewed and nursing notes reviewed Medical History History of high cholesterol Social History Social History Alcohol intake: never Patient Tobacco Use Status: Never used Tobacco Current occupational status: unemployed Physical Exam ED Vital Signs: Vital Signs - 24 hr 04/01/23 14:28 Temperature 97.4 F Pulse Rate 94 Respiratory Rate 16 Blood Pressure 140/89 H Pulse Oximetry 99 Oxygen Delivery Method Room Air BMI result Body Mass Index 29.0 vss Appearance: Alert.? Oriented X3.? No acute distress.? Head: Normocephalic, atraumatic, no step-offs or deformities Eyes: Pupils equal, round and reactive to light.? ENT: Pharynx normal.? Neck: Normal inspection.? Neck supple.? CVS:? Pulses normal.? Respiratory: No respiratory distress.? Skin: Skin warm and dry.? Normal skin color.? Normal skin turgor.? Extremities:5/5 strength to bilateral upper and lower extremities. 2+ radial pulses full range of motion to all fingers. Four intact sutures simple interrupted to left 1st digit. Normal capillary refill less than 2 seconds. Normal sensation distally. Neuro: Oriented X 3.? No motor deficit.? No sensory deficit. CN 2-12 intact Course Reevaluation(s) Reevaluation #1: Educated patient on diagnosis and treatment plan, answered all question, patient verbalizes understanding. At this time patient will be discharged home, advised to return with new or worsening symptoms. Educated on worrisome signs and symptoms and when to return. At this time I feel comfortable discharge home. Time: 14:30 Reevaluation #2: Upon DC requesting a test would like to know if she is she is trying. Period late by 3 days. No abd pain or vaginal bleeding/ dc. Time: 14:31 Medical Decision Making Medical Decision Making MDM Narrative: 42-year-old female presents for suture removal Physical exam 5/5 strength to bilateral upper and lower extremities. 2+ radial pulses full range of motion to all fingers. Four intact sutures simple interrupted to left 1st digit. Normal capillary refill less than 2 seconds. Normal sensation distally. Likely simple suture removal no signs of abscess, neurovascular compromise, threat to Webb, infection. Plan suture removal was done in triage w/o difficulty will discharge patient home. Educated patient on diagnosis and treatment plan, answered all question, patient verbalizes understanding. At this time patient will be discharged home, advised to return with new or worsening symptoms. Educated on worrisome signs and symptoms and when to return. At this time I feel comfortable discharge home. Differential Diagnosis Differential Diagnoses: The differential diagnosis associated with the presentation includes Likely simple suture removal no signs of abscess, neurovascular compromise, threat to Webb, infection. Admission/Observation Consideration of admission/observation: Escalation of care including admission/observation considered unlikely Critical Care Time Critical Care Time Critical Care Time: No Discharge Plan Discharge Clinical Impression: Visit for suture removal Patient Disposition: Home, Self-Care Instructions: Stitches Removal (ED) Additional Instructions: Take your medications as prescribed. If you were prescribed antibiotics today, it is important that you take your medication to their entirety, do not skip any doses, do not finish them early. Follow-up with your primary care provider this week. Return to the emergency department with new or worsening symptoms. Such as fevers, chills, chest pain, shortness of breath, nausea, vomiting, dizziness, headache, vision changes, lethargy In case of emergency call 911 Prescriptions: No Action oxycodone 5 mg tablet 5 mg PO Q6H PRN (Reason: pain) Qty: 14 0RF Rx Instructions: Partial Fill upon patient request. benzonatate 100 mg capsule 100 mg PO BID PRN (Reason: cough) 7 Days Qty: 14 0RF doxycycline hyclate 100 mg tablet 100 mg PO BID 7 Days Qty: 14 0RF prednisone 20 mg tablet 20 mg PO DAILY 7 Days Qty: 7 0RF albuterol sulfate [ProAir HFA] 90 mcg/actuation HFA aerosol inhaler 2 puff inhalation Q4-6H PRN (Reason: bronchospasm) Qty: 8.5 0RF prednisone 20 mg tablet 40 mg PO DAILY Qty: 10 0RF ibuprofen 600 mg tablet 600 mg PO Q6H PRN (Reason: fever or pain) Qty: 30 0RF Referrals: Physician,Unknown J [Primary Care Provider] - 2 days
[2023-04-01 14:28] VITALS: BP 140/89; PULSE 94; RESP 16; TEMP 36.3; O2SAT 99; BMI 29.0
[2023-04-01 15:19] LABS: UPreg QC Valid YES; Urine Pregnancy NEGATIVE (NEGATIVE)
== END 2023-04-01 15:29 | disposition home or self-care (01) ==
LOC: HO.ED 15:26
PROVIDERS: Physician Assistant; Emergency Provider Student in an Organized Health Care Education/Training Program
DX: Z48.02 Encounter for removal of sutures (principal)
CPT/HCPCS: 81025; 99282

== ENCOUNTER 2023-07-30 23:17 | Emergency (ER) | payer MEDICAID, SELFPAY ==
--- NOTE | 2023-07-30 | ECG_ITS ---
Test Reason : COUGHING Blood Pressure : / mmHG Vent. Rate : 069 BPM Atrial Rate : 069 BPM P-R Int : 108 ms QRS Dur : 074 ms QT Int : 384 ms P-R-T Axes : 028 050 044 degrees QTc Int : 411 ms Sinus rhythm with short [place] Otherwise normal ECG No previous ECGs available Referred By: Generic ED Physician Electronically Signed By:DORIAN JAMESON MD
[2023-07-30 23:28] VITALS: BP 127/76; PULSE 80; RESP 14; TEMP 36.9; O2SAT 99; BMI 28.6
[2023-07-31 00:12] LABS: MANUAL DIFF FLAG NO
[2023-07-31 00:18] LABS: Basophils Absolute Auto 0.1 X10*3/uL (0.0-0.2); Basophils Percent Auto 0.8 % (0-2); Eosinophils Absolute Auto 0.1 X10*3/uL (0.0-0.4); Eosinophils Percent Auto 1.4 % (0-4); Hematocrit 37.4 % (37.0-47.0); Hemoglobin 12.5 g/dl (12.0-16.0); Imm Gran Abs Auto 0.01 X10*3/uL (0.00-0.03); Imm Gran Pct Auto 0.2 % (0.0-0.4); Lymphocytes Absolute Auto 1.6 X10*3/uL (1.2-4.9); Lymphocytes Percent Auto 27.7 % (20-40); Mean Corpuscular HGB Conc 33.4 g/dl (31.0-35.0); Mean Corpuscular Hemoglobin 31.1 pg (27.0-33.0); Mean Platelet Volume 10.1 fL (9.4-12.3); Monocytes Absolute Auto 1.2 X10*3/uL (0.1-1.2); Monocytes Percent Auto 19.8 % (2-11); Neutrophils Percent Auto 50.1 % (45-73); Platelet Count 187 X10*3/uL (160-400); Red Blood Count 4.02 X10*6/uL (4.20-5.50); Red Cell Distribution Width 13.2 % (11.0-16.0); White Blood Count 5.9 X10*3/uL (4.8-10.8)
--- NOTE | 2023-07-31 00:21 | MHC.EDTECH ---
PATIENT BLOOD DRAWN AND RSV/COVID SWAB COLLECTED AND SENT TO LAB ,EKG TAKEN AND WAS READ BY PROVIDER .
[2023-07-31 00:42] LABS: Alanine Aminotransferase 15 U/L (0-31); Albumin Level 3.6 g/dL (3.5-5.0); Alkaline Phosphatase 57 U/L (39-117); Anion Gap 11 (12-20); Aspartate Amino Transferase 19 U/L (5-31); Bilirubin Total 0.2 mg/dL (0.0-1.0); Blood Urea Nitrogen 10 mg/dL (9-16); Calcium 8.5 mg/dL (8.4-10.2); Carbon Dioxide 25 mmol/L (22-29); Chloride 108 mmol/L (96-108); Creatinine Clr Calc Pharmacy 101.6; Estimated Glomerular Filt Rate > 60; Glucose Random 107 mg/dL (60-115); HCG Quantitative < 2 mIU/mL; Potassium 4.2 mmol/L (3.3-5.1); Sodium 140 mmol/L (135-145); Total Protein 6.7 g/dL (6.5-8.0)
[2023-07-31 00:54] LABS: Influenza A PCR NEGATIVE (Negative); Influenza B PCR NEGATIVE (Negative); Resp Syncy Virus RNA Qual PCR NEGATIVE (Negative); SARS COV2 PCR INHOUSE NEGATIVE (Negative)
[2023-07-31 02:51] VITALS: BP 121/75; PULSE 82; RESP 16; TEMP 36.8; O2SAT 99
--- NOTE | 2023-07-31 04:11 | ED.GENADULT ---
HPI - General Adult General Chief complaint: General Medical Stated complaint: chest congestion Time Seen by Provider: 07/31/23 03:41 Source: patient Mode of arrival: ambulatory History of Present Illness HPI narrative: 42-year-old female with complaints of chest congestion and cough for 3 days as well as subjective fevers patient reports associated pressure with coughing but otherwise denies any sick contacts. Related Data Previous Rx's ?Medication ?Instructions ?Recorded oxycodone 5 mg tablet 5 mg PO Q6H PRN pain #14 tabs 05/27/22 benzonatate 100 mg capsule 100 mg PO BID PRN cough 7 days #14 08/01/22 caps doxycycline hyclate 100 mg tablet 100 mg PO BID 7 days #14 tabs 08/01/22 prednisone 20 mg tablet 20 mg PO DAILY 7 days #7 tabs 08/01/22 albuterol sulfate 90 mcg/actuation 2 puff inhalation Q4-6H PRN 08/18/22 aerosol inhaler (ProAir HFA) bronchospasm #8.5 grams ibuprofen 600 mg tablet 600 mg PO Q6H PRN fever or pain 08/18/22 #30 tabs prednisone 20 mg tablet 40 mg (2 x 20 mg) PO DAILY #10 tabs 08/18/22 Allergies Allergy/AdvReac Type Severity Reaction Status Date / Time No Known Allergies Allergy Verified 07/30/23 23:29 Review of Systems Review of Systems: Pertinent positives and negatives as stated in HPI [facility] Past Medical History Source: nursing notes reviewed Medical History History of high cholesterol Social History Social History Alcohol intake: never Patient Tobacco Use Status: Never used Tobacco Smoked in Last 30 Days: No Use of substances other than those prescribed or required for medical reasons: No Advance Directives: No Advance Directives Information Provided: Yes Do you have a plan to hurt others: No Plan Patient : No Current occupational status: unemployed Physical Exam ED Vital Signs: Vital Signs - 24 hr 07/30/23 23:28 07/31/23 02:51 07/31/23 04:20 Temperature 98.4 F 98.2 F 98.2 F Pulse Rate 80 82 82 Respiratory Rate 14 16 16 Blood Pressure 127/76 121/75 121/75 Pulse Oximetry 99 99 99 Oxygen Delivery Method Room Air Room Air Room Air BMI result Body Mass Index 28.6 VITAL SIGNS: Reviewed. GENERAL: Well developed, well nourished, in no acute distress. HEAD: Normocephalic/atraumatic EYES: PERRLA, EOMI EARS: Ext canals without abnormality NOSE: Nares patent bilateral OROPHARYNX: no oral lesions noted, posterior pharynx clear NECK: Supple, no adenopathy LUNGS: Normal breath sounds. No adventitious sounds or accessory muscle use. SpO2<99> CARDIOVASCULAR: Regular rate and rhythm without noted murmurs ABDOMEN: Soft, non-tender, non-distended with bowel sounds. MUSCULOSKELETAL: No tenderness, deformities, or effusions noted on gross inspection. EXTREMITIES: No cyanosis, clubbing or edema. SKIN: Inspection of the skin reveals no rashes NEUROLOGIC: Alert and oriented x 4. Strength and sensation to light touch were grossly intact x 4. Medical Decision Making Medical Decision Making [facility] Narrative: 42-year-old female with history and clinical presentation, DDX: Pneumonia, viral illness. I reviewed all investigations and hematologic indices are negative for leukocytosis or left shift, there is no anemia or thrombocytopenia. Chemistry indices are negative for DEANN or electrolyte/liver enzyme derangements. Beta hCG is undetectable. Serologies negative for influenza/RSV/COVID-19. My interpretation is that patient likely has viral congestion, there is no fever or clinical exam findings to suggest acute pneumonia. All findings and results discussed with patient at bedside. Differential Diagnosis Differential Diagnoses: The differential diagnosis associated with the presentation includes Please see the discussion above Admission/Observation Consideration of admission/observation: Escalation of care including admission/observation considered Please see the discussion above Lab Data [facility] Lab Attestation statement: I reviewed the patient's lab results. Please see the discussion above 07/31/23 00:07 07/31/23 00:07 Labs: Lab Results 07/31/23 Range/Units 00:07 WBC 5.9 (4.8-10.8) X10*3/uL RBC 4.02 L (4.20-5.50) X10*6/uL Hgb 12.5 (12.0-16.0) g/dl Hct 37.4 (37.0-47.0) % MCV 93.0 (80.0-98.0) fL MCH 31.1 (27.0-33.0) pg MCHC 33.4 (31.0-35.0) g/dl RDW 13.2 (11.0-16.0) % Plt Count 187 (160-400) X10*3/uL MPV 10.1 (9.4-12.3) fL Immature Gran % (Auto) 0.2 (0.0-0.4) % Neut % (Auto) 50.1 (45-73) % Lymph % (Auto) 27.7 (20-40) % Mcnairy % (Auto) 19.8 H (2-11) % Eos % (Auto) 1.4 (0-4) % Baso % (Auto) 0.8 (0-2) % Lymph # (Auto) 1.6 (1.2-4.9) X10*3/uL Mcnairy # (Auto) 1.2 (0.1-1.2) X10*3/uL Eos # (Auto) 0.1 (0.0-0.4) X10*3/uL Baso # (Auto) 0.1 (0.0-0.2) X10*3/uL Abs Immat Gran (auto) 0.01 (0.00-0.03) X10*3/uL Absolute Neuts (auto) 3.0 (2.0-8.3) x10*3/uL Absolute Nucleated RBC 0.000 (0.0-0.012) X10*3/uL Nucleated RBC % (auto) 0.0 (0.0-0.2) /100WBC Sodium 140 (135-145) mmol/L Potassium 4.2 (3.3-5.1) mmol/L Chloride 108 (96-108) mmol/L Carbon Dioxide 25 (22-29) mmol/L Anion Gap 11 L (12-20) BUN 10 (9-16) mg/dL Creatinine 0.76 (0.5-1.4) mg/dL Estim Creat Clear Calc 101.6 Estimated GFR > 60 Random Glucose 107 (60-115) mg/dL Calcium 8.5 (8.4-10.2) mg/dL Total Bilirubin 0.2 (0.0-1.0) mg/dL AST 19 (5-31) U/L ALT 15 (0-31) U/L Alkaline Phosphatase 57 (39-117) U/L Total Protein 6.7 (6.5-8.0) g/dL Albumin 3.6 (3.5-5.0) g/dL Beta HCG, Quant < 2 mIU/mL Influenza Type A (PCR) NEGATIVE (Negative) Influenza Type B (PCR) NEGATIVE (Negative) RSV RNA Qual (PCR) NEGATIVE (Negative) SARS-CoV-2 RNA (RT-PCR) NEGATIVE (Negative) Critical Care Time Critical Care Time Critical Care Time: Yes Total Critical Care Time: 30 Attestation: I personally attest to this time spent taking care of the patient. Discharge Plan Discharge Clinical Impression: Viral illness Patient Disposition: Home, Self-Care Instructions: Viral Syndrome (ED) Additional Instructions: 1. I recommend [id number] Tylenol/ibuprofen as needed for body aches, headaches and temperatures greater than 100.4. 2. I recommend that you continue to drink plenty of fluids and get enough rest and use [id number] cough medication. 3. Follow-up with primary care doctor. Return to the ER for any worsening of symptoms. Prescriptions: No Action oxycodone 5 mg tablet 5 mg PO Q6H PRN (Reason: pain) Qty: 14 0RF Rx Instructions: Partial Fill upon patient request. benzonatate 100 mg capsule 100 mg PO BID PRN (Reason: cough) 7 Days Qty: 14 0RF doxycycline hyclate 100 mg tablet 100 mg PO BID 7 Days Qty: 14 0RF prednisone 20 mg tablet 20 mg PO DAILY 7 Days Qty: 7 0RF albuterol sulfate [ProAir HFA] 90 mcg/actuation HFA aerosol inhaler 2 puff inhalation Q4-6H PRN (Reason: bronchospasm) Qty: 8.5 0RF prednisone 20 mg tablet 40 mg PO DAILY Qty: 10 0RF ibuprofen 600 mg tablet 600 mg PO Q6H PRN (Reason: fever or pain) Qty: 30 0RF Interventions: ED Discharge Assessment Last Done: 07/31/23 04:20 Discharge Date/Time: 07/31/23 04:21 Print Language: Citizen [place]
[2023-07-31 04:20] VITALS: BP 121/75; PULSE 82; RESP 16; TEMP 36.8; O2SAT 99
== END 2023-07-31 04:21 | disposition home or self-care (01) ==
PROVIDERS: Emergency Provider Student in an Organized Health Care Education/Training Program
DX: B34.9 Viral infection, unspecified (principal)
CPT/HCPCS: 0241U; 80053; 84702; 85025; 93005; 99283; 99284

== ENCOUNTER → 2023-07-30 | Outpatient (BNV) | payer MEDICAID, SELFPAY | PROVIDERS: Emergency Provider Student in an Organized Health Care Education/Training Program; Visit Provider Internal Medicine Cardiovascular Disease | DX: I49.8 Other specified cardiac arrhythmias (principal) | CPT/HCPCS: 93010 ==

== ENCOUNTER 2023-09-10 14:04 | Outpatient (AMB) | payer MEDICAID, SELFPAY ==
--- NOTE | 2023-09-10 14:27 | A.OFFVIS_ITS ---
Intake Visit Reasons: Newprob-Left hand/ trigger middle finger pain Intake Note: Francy is a 42 year old right hand dominant female who presents today for a evalaution of her left middle trigger finger. Patient reports about a year and a half ago she started to notice pain in her middle finger. She was seen with [facility] were they gave her a injection which helped her. They gave her a diagnosis of trigger finger. Just about 7-8 months after she is not able to move her finger or bend it. Allergies No Known Allergies Allergy (Verified 09/10/23 14:29) HPI HPI Newprob-Left hand/ trigger middle finger pain: Details: 42-year-old right hand dominant female who presents in the office today for an evaluation of left hand middle finger pain. While in the office today the patient reports she started noticing pain in the left middle finger that began about 1.5 years ago. She confirms being evaluated at [facility] and confirms having 3 trigger finger injections. She confirms mild relief with the cortisone injections. She claims they discussed a left middle finger, trigger finger release, but she was unsure of the surgery and deferred due to needing to work with her hand constantly. She states she has been unable to bend the left middle finger for the past 5 months. She states there was a time she stopped using her left hand. She has been trying to massage the finger with no relief. Patient states she feels like the finger is stiff and describes it ?like something is holding it down (in place)?. She states she is unable to bring the finger down without manually manipulating the left middle digit. She denies clicking. She denies numbness or tingling. She states she has full sensation in the left middle finger. She states this keeps her from performing daily activities. [facility] Medical History History of high cholesterol Social History Alcohol intake: never Patient Tobacco Use Status: Never used Tobacco Current occupational status: unemployed Review of Systems Const All systems reviewed & are unremarkable except as noted in HPI and below Physical Exam Const General: cooperative and no acute distress Orientation/consciousness: patient oriented x3 Resp Effort & Inspection: normal respiratory effort and able to speak in complete sentences Cardio Peripheral pulses: Peripheral pulses 2+ throughout Skin General skin exam: no rashes or lesions noted Neuro General: patient oriented x3 Extrem Other: Left middle finger: Normal to inspection. No ecchymosis, erythema, or edema. No tenderness to palpation over the A1 domingo. Patient described tightness along the dorsal aspect between the MCP and PIP. Lacking 2 cm from making a closed fist at the DIP of the middle finger. No active triggering. Sensation intact. Capillary refill is brisk. Reminder of left hand digits: Able to perform full finger flexion, extension, abduction, adduction, finger cross, okay sign, and thumbs up without deficit. Able to make a closed fist. Assessment & Plan Assessment & Plan (1) Stiffness of finger joint of left hand: Comment: Left middle finger Code(s): M25.642 - Stiffness of left hand, not elsewhere classified Category: Medical (2) Trigger finger, left middle finger: Code(s): M65.332 - Trigger finger, left middle finger Category: Medical Plan Ms. Ospina is a 42-year-old right hand dominant female who presents in the office today for an evaluation of left hand middle finger pain. While in the office today the patient reports she started noticing pain in the left middle finger that began about 1.5 years ago. She confirms being evaluated at [facility] and confirms having 3 trigger finger injections. She confirms mild relief with the cortisone injections. She claims they discussed a left middle finger, trigger finger release, but she was unsure of the surgery and deferred due to needing to work with her hand constantly. She states she has been unable to bend the left middle finger for the past 5 months. She states there was a time she stopped using her left hand. She has been trying to massage the finger with no relief. Patient states she feels like the finger is stiff and describes it ?like something is holding it down (in place)?. She states she is unable to bring the finger down without manually manipulating the left middle digit. She denies clicking. She denies numbness or tingling. She states she has full sensation in the left middle finger. She states this keeps her from performing daily activities. Dr. Pelaez was available to speak with me but unable to see the patient while in the office today and a collaborative treatment plan was made. The patient will be referred to occupational therapy to work on ROM and stiffness in the left middle finger. Follow up will be in [address] Pelaez to determine if trigger finger release will be appropriate at that time, or sooner if needed. X-rays of the left hand which were obtained while in the office today and were reviewed by me, Radha Vinson PA-C, revealed no acute fracture or dislocation. Orders: Orders OT Evaluation and Treatment 09/10/23 M25.642 - Stiffness of left hand, not elsewhere classified, M65.332 - Trigger finger, left middle finger XR hand LT min 3V 09/10/23 M79.643 - Pain in unspecified hand Patient Instructions: Scribed by Luna Rubio, manager of medical, for Radha Vinson PA-C on 09/10/2023 at 2:06 pm, EST. Coding Level of Care Code New Pt Level 4 (52796) Diagnoses Stiffness of finger joint of left hand M25.642 Trigger finger, left middle finger M65.332
== END 2023-09-10 15:14 | disposition home or self-care (01) ==
PROVIDERS: PCP Physician Assistant; Visit Provider Physician Assistant
DX: M65.332 Trigger finger, left middle finger (principal)
CPT/HCPCS: 99214

== ENCOUNTER 2023-09-10 14:04 | Outpatient (REF) | payer MEDICAID, SELFPAY ==
--- NOTE | ~2023-09-10 | XR_ITS ---
EXAMINATION: XR HAND, LEFT CLINICAL INFORMATION: Pain in unspecified hand, third digit. COMPARISON: None available. TECHNIQUE: PA, lateral, and oblique views of the left hand. FINDINGS: Mild degenerative changes in the first carpometacarpal joint. Ulnar minus variance. Tiny ossific/calcific density adjacent to the radial styloid. Ring overlies fourth digit. Bracelet at wrist. No displaced fracture of the third digit appreciated. Mild degenerative changes in the first metacarpophalangeal and interphalangeal joints. XR/XR hand LT min 3V IMPRESSION: 1. Mild degenerative changes in the first digit. 2. Ulnar minus variance. Tiny ossific/calcific density adjacent to the radial styloid. 3. No displaced fracture of the third digit appreciated.
== END 2023-09-10 14:05 | disposition home or self-care (01) ==
LOC: HO.HOSX 14:04
PROVIDERS: PCP Physician Assistant; Visit Provider Physician Assistant
DX: M25.642 Stiffness of left hand, not elsewhere classified (principal); M65.332 Trigger finger, left middle finger
CPT/HCPCS: 73130; 99212

== ENCOUNTER 2023-11-05 14:33 | Outpatient (REF) | payer MEDICAID, SELFPAY ==
--- NOTE | ~2023-11-05 | XR_ITS ---
EXAMINATION: XR SHOULDER, RIGHT CLINICAL INFORMATION: Pain in the shoulder COMPARISON: None available. TECHNIQUE: AP external rotation, Grashey, scapular Y, and axillary views of the right shoulder. FINDINGS: The bones and soft tissues are normal. No fracture. Glenohumeral and acromioclavicular alignment is anatomic with normal joint space. No abnormal soft tissue calcifications. XR/XR shoulder RT min 2V IMPRESSION: Normal right shoulder.
== END 2023-11-05 14:34 | disposition home or self-care (01) ==
LOC: HO.HOSX 14:33
PROVIDERS: PCP Physician Assistant; Visit Provider Physician Assistant
DX: M25.511 Pain in right shoulder (principal); M54.12 Radiculopathy, cervical region
CPT/HCPCS: 73030; 99212

== ENCOUNTER 2023-11-05 14:33 | Outpatient (AMB) | payer MEDICAID, SELFPAY ==
--- NOTE | 2023-11-05 14:44 | A.OFFVIS_ITS ---
Vital Signs 11/05/23 14:49 Height 5 ft 5 in Weight 172 lb BMI 28.6 Intake Visit Reasons: New pain - right shoulder pain Intake Note: Francy is a 43 year old right hand dominant dominant female who presents today for a evaluation of her right shoulder pain. no hx of injury. Patient reports ongoing pain for about 4 months. She mentions that she is unable to have a good flotation tender and unable to reach her back. Patient might be interested in a injection. Allergies No Known Allergies Allergy (Verified 11/05/23 14:48) HPI HPI New pain - right shoulder pain: Details: 43-year-old right hand dominant female who presents in the office today for an e valuation of right shoulder pain. ? ? While in the office today, the patient reports ongoing pain for about 4 months. She states she is unable to maintain a good flotation tender and is unable to reach her back. ? [facility] Medical History History of high cholesterol Social History Alcohol intake: never Patient Tobacco Use Status: Never used Tobacco Current occupational status: unemployed Review of Systems Const All systems reviewed & are unremarkable except as noted in HPI and below Physical Exam Vital Signs: BMI result Body Mass Index 28.6 Const General: cooperative, healthy appearing and no acute distress Resp Effort & Inspection: normal respiratory effort and able to speak in complete sentences Cardio Rate: regular rate Peripheral pulses: Peripheral pulses 2+ throughout GI Palpation (GI): Soft to palpation Skin Lesions: no lesions Rashes: no rashes Extrem Other: Right shoulder: Normal to inspection. No ecchymosis, erythema, or edema. Full shoulder ROM in all planes. Pain down the arm with reaching behind the back. Negative cross-body reach. 3/5 strength with empty can. Negative drop arm. Decreased flotation tender strength right. Reports pain from the neck to the right hand. NVI.? ? Assessment & Plan Assessment & Plan (1) Cervical radicular pain: Code(s): M54.12 - Radiculopathy, cervical region Category: Medical Plan Ms. Ospina is a 43-year-old right hand dominant female who presents in the office today for an evaluation of right shoulder pain. ? ? While in the office today, the patient reports ongoing pain for about 4 months. She states she is unable to maintain a good flotation tender and is unable to reach her back.? ? The patient will be referred for an EMG study of the right upper extremity. She will follow-up after the EMG is obtained, or sooner if needed. ? ? X-rays of the right shoulder which were obtained while in the office today and were reviewed by me, Radha Vinson PA-C, revealed no acute fracture or dislocation.? Orders: Orders XR shoulder RT min 2V Today M25.519 - Pain in unspecified shoulder NE electromyogram (EMG) Today M54.12 - Radiculopathy, cervical region Patient Instructions: Scribed by Luna Rubio medical billing representative, for Radha Vinson PA-C on 11/05/2023 at 2:37 pm, EST.? Coding Level of Care Code Est Pt Level 4 (92468) Diagnoses Cervical radicular pain M54.12
[2023-11-05 14:49] VITALS: BMI 28.6
== END 2023-11-05 16:18 | disposition home or self-care (01) ==
PROVIDERS: PCP Physician Assistant; Visit Provider Physician Assistant
DX: M54.12 Radiculopathy, cervical region (principal)
CPT/HCPCS: 99213

== ENCOUNTER 2023-11-20 14:55 | Outpatient (AMB) | payer MEDICAID, SELFPAY ==
--- NOTE | 2023-11-20 14:58 | A.OFFVIS_ITS ---
Vital Signs 11/20/23 15:01 Height 5 ft 5 in Weight 172 lb BMI 28.6 Intake Visit Reasons: OV-Left hand/ trigger middle finger pain Intake Note: Francy is a 42 year old female who presents to the office today for a follow up evaluation of left middle trigger finger. Patient states she is no longer going to OT because it was not helpful. She would like to discuss trigger finger release today. Allergies No Known Allergies Allergy (Verified 11/20/23 15:01) HPI HPI OV-Left hand/ trigger middle finger pain: Details: Francy is a 43 year old right hand dominant woman who presents to discuss her left hand stiffness & middle trigger finger. She complains of painful locking and catching of her left middle finger. She says this has been present for ~3 years now, intermittent & recurrent. She was initially being seen at [facility] and last received a steroid injection sometime in 2022. She received a steroid injection, with some relief, and declined surgery at the time. She complains of painful locking of her finger and wants to discuss surgery today. She says her finger will move by itself & lock on its own at times, and she has to manually extend her finger after this. She was seen by MARGARITA Garcia for this on 09/10/23 and referred to OT hand therapy. She says she stopped attending therapy as she was not finding it helpful. It appears she did not attend her initial OT appointment at [place].? She has improved her finger stiffness since her last appointment but is still hesitant and struggling with making a closed fist. She says I also performed a trigger finger release on her mother in the past, with good results, and this encouraged her to come in today to discuss surgery. 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 [facility] Medical History History of high cholesterol Social History (Updated 11/20/23 @ 15:08 by HILLARY Marquez) Alcohol intake: never Patient Tobacco Use Status: Never used Tobacco Current occupational status: unemployed Current occupation: rt handed Review of Systems Const All systems reviewed & are unremarkable except as noted in HPI and below Physical Exam Vital Signs: BMI result Body Mass Index 28.6 Const General: cooperative, healthy appearing and no acute distress Orientation/consciousness: patient oriented x3 HEENT Head: Yes normocephalic and Yes atraumatic Eyes EOM: EOMs intact bilaterally Resp Effort & Inspection: normal respiratory effort and able to speak in complete sentences Cardio Jugular venous distension: no JVD Skin General skin exam: turgor normal Rashes: no rashes Neuro General: patient oriented x3 Extrem Other: Evaluation of Left Upper Extremity: The patient is alert, oriented, and in no acute distress Neuro: Median, Ulnar, Radial nerves motor and sensory intact and sensation is normal to the tips of all digits Vascular: Cap refill brisk ROM: Initially she could bring her middle fingertip to ~2cm from her palm Before leaving clinic, with encouragement, she could actively bring her middle finger down to touch her palm Visible and palpable locking & catching of the middle finger today in clinic Mild tenderness over the a1 domingo No subluxaton of the extensor mechanism Bothersome soreness in the PIP joint, particularly when she flexes down to a fist. I explained to her that this was from the stiffness that she had and the fact that she is now working her way out of that stiffness. I encouraged her to continue with her [id number] exercises Skin: No lacerations or abrasions. General: No Ecchymosis. No Erythema or evidence of infection. Psych Appearance: grossly normal Affect: normal affect Attitude: cooperative Assessment & Plan Assessment & Plan (1) Trigger finger, left middle finger: Code(s): M65.332 - Trigger finger, left middle finger Category: Medical (2) Stiffness of finger joint of left hand: Comment: Left middle finger Code(s): M25.642 - Stiffness of left hand, not elsewhere classified Category: Medical Plan Assessment & Plan: 1. Left middle finger trigger finger I educated her about this condition I discussed operative and non-operative treatment options The patient would like to proceed with surgery The risks and benefits of operative treatment were discussed with the patient and the patient wishes to proceed with surgery. These risks include, but are not limited to risk of damage to blood vessels, nerves, tendons, infection, recurrence, incomplete relief of preoperative symptoms, persistent pain, possible need for further surgery and the risks associated with regional blocks and anesthesia. The plan is to take the patient to the operating room sometime in the next few weeks for the following procedures: 1. Left middle finger trigger release, under local All of the preoperative paperwork including the consent was reviewed today. All the patient's questions were answered. The patient understands that they will be contacted by our equipment scheduler soon to schedule this procedure She denies Diabetes, blood thinners, asthma, heart, lung, kidney issues 2. Left middle finger stiffness I educated her about this condition She has improved her ROM in the last few months, but continues to have some difficulties We worked on ROM exercises today in clinic, and I encouraged her to continue to work on ROM exercises at home Scribed for Enma Pelaez MD by Santi Otto, medical administrator, on 11/20/23 at 3:15 PM, EST. Coding Level of Care Code Est Pt Level 4 (32032) Diagnoses Trigger finger, left middle finger M65.332 Stiffness of finger joint of left hand M25.642
[2023-11-20 15:01] VITALS: BMI 28.6
== END 2023-11-20 15:44 | disposition home or self-care (01) ==
PROVIDERS: PCP Physician Assistant; Referring Provider Physician Assistant; Visit Provider Orthopaedic Surgery
DX: M65.332 Trigger finger, left middle finger (principal); M25.642 Stiffness of left hand, not elsewhere classified
CPT/HCPCS: 99214

== ENCOUNTER → 2023-11-20 14:55 | Outpatient (BNVA) | payer MEDICAID, SELFPAY | PROVIDERS: PCP Physician Assistant; Visit Provider Orthopaedic Surgery | DX: M65.332 Trigger finger, left middle finger (principal); M25.642 Stiffness of left hand, not elsewhere classified | CPT/HCPCS: 99212 ==

== ENCOUNTER 2023-12-06 12:58 | Outpatient (REF) | payer MEDICAID, SELFPAY ==
--- NOTE | 2023-12-06 | EMG_ITS ---
Chief complaint: Right arm constant pain, neck pain Reason for referral: Evaluate for radiculopathy Referred by: Radha AVILA Procedure done: Right upper extremity NCS/EMG Precautions and/or limitations: None The limb temperature was monitored continuously and remained between 32-36 degrees C during the performance of the NCS. Nerve Conduction Studies Anti Sensory Summary Table ?Stim Site NR Onset (ms) Norm Onset (ms) Peak (ms) Norm Peak (ms) O-P Amp (?V) Norm O-P Amp Site1 Site2 Delta-0 (ms) Dist (cm) Fabiano (m/s) Norm Fabiano (m/s) Right Median Anti Sensory (2nd Digit) Wrist ? 3.6 4.7 <3.6 42.0 >10 Wrist 2nd Digit 3.6 14.0 39 Right Radial Anti Sensory (Thumb) Forearm ? 1.6 2.2 <3.1 50.3 Forearm Thumb 1.6 0.0 Right Ulnar Anti Sensory (5th Digit) Wrist ? 2.5 3.5 <3.7 38.1 >15.0 Wrist 5th Digit 2.5 14.0 56 Motor Summary Table ?Stim Site NR Onset (ms) Norm Onset (ms) O-P Amp (mV) Norm O-P Amp iAmp (mV) Amp (1st) (%) Site1 Site2 Delta-0 (ms) Dist (cm) Fabiano (m/s) Norm Fabiano (m/s) Right Median Motor (Abd Poll Brev) Wrist ? 5.3 <3.9 15.5 >4.5 18.7 100.0 Elbow Wrist 4.2 23.0 55 >45 Elbow ? 9.5 15.3 18.3 98.7 Right Ulnar Motor (Abd Dig Minimi) Wrist ? 2.9 <3.0 9.3 >5 11.8 100.0 B Elbow Wrist 4.0 22.0 55 >45 B Elbow ? 6.9 9.0 11.4 96.8 A Elbow B Elbow 1.9 10.0 53 >45 A Elbow ? 8.8 8.5 10.8 91.4 EMG ?Side Muscle Nerve Root Ins Act Fibs Psw Amp Dur Poly Recrt Int Pat Comment Right 1stDorInt Ulnar C8-T1 Nml Nml Nml Nml Nml 0 Nml Complete Right FlexCarRad Median C6-7 Nml Nml Nml Nml Nml 0 Nml Complete Right Biceps Musculocut C5-6 Nml Nml Nml Nml Nml 0 Nml Complete Right Triceps Radial C6-7-8 Nml Nml Nml Nml Nml 0 Nml Complete Right Deltoid Axillary C5-6 Nml Nml Nml Nml Nml 0 Nml Complete FINDINGS: Right median motor nerve showed prolonged distal latency, normal amplitude and normal conduction velocity. Right median sensory nerve showed prolonged peak latency. All other nerves tested were within normal. Concentric needle EMG was performed in selected muscles of the right upper extremity. Study did not reveal signs of electric abnormalities as shown in the table above. IMPRESSION: 1. This is an abnormal study. 2. There is electrodiagnostic evidence for right moderate-severe median neuropathy at the wrist, consistent with carpal tunnel syndrome. 3. There is no electrodiagnostic evidence for ulnar neuropathy, brachial plexopathy, or cervical radiculopathy. Thank you for your kind referral. Sharonda Ron MD, KRISTIN Board Certified, [place] [employer] and [employer] (ABPMR) Board Certified, [place] Board of Electrodiagnostic Medicine (ABEM) [facility] [id number] [facility]
== END 2023-12-06 12:59 | disposition home or self-care (01) ==
LOC: HO.NEURO 12:58
PROVIDERS: PCP Physician Assistant; Visit Provider Physician Assistant
DX: M54.12 Radiculopathy, cervical region (principal)
CPT/HCPCS: 95886; 95909

== ENCOUNTER → 2023-12-06 14:00 | Outpatient (BNV) | payer MEDICAID, SELFPAY | PROVIDERS: PCP Physician Assistant; Visit Provider Physical Medicine & Rehabilitation | DX: G56.01 Carpal tunnel syndrome, right upper limb (principal) | CPT/HCPCS: 95886; 95909 ==

== ENCOUNTER 2024-01-13 13:26 | Day surgery (SDC) | payer MEDICAID, SELFPAY ==
[2024-01-13 15:12] VITALS: BMI 32.6
--- NOTE | 2024-01-13 17:05 | MHC.SHP ---
Pre-Procedural Eval Section A - 24 Hr Update-Section A only Date of Service: 01/13/24 The patient is an INPATIENT: No Changes since office visit: No Cold of Flu in the past 2 weeks, No New Medical Problems, No Changes in Medication and No Patient answered all questions The patient has been examined within 24 hours of the surgical procedure. The History & Physical has been completed within 30 days and I have reviewed it.: Yes Section B - Complete if H&P > 30 days Chief Complaint: Trigger finger, left middle finger Allergies: Allergies Allergy/AdvReac Type Severity Reaction Status Date / Time No Known Allergies Allergy Verified 01/13/24 15:12 Plan Diagnosis/Plan: Unchanged I have reviewed the history and physical and performed a pertinent physical examination on my patient. No changes have occurred unless specified. Time Spent With Patient Time: Total time managing care of this patient today ____ minutes.
--- NOTE | 2024-01-13 17:06 | P.OP_ITS ---
Operative Note Operative Note Date of Service: 01/13/24 Narrative: Operative Note Preop diagnosis: 1. Left middle finger Trigger finger Postop diagnosis: 1. Left middle finger Trigger finger Procedure: 1. Left middle finger A1 domingo release Surgeon: Enma Pelaez MD Customer Sales Consultant: None Anesthesia: local block using 1% lidocaine with epinephrine Findings: No locking or catching after A1 domingo release EBL: Less than 5 mL Tourniquet time: None Specimens: None Complications: None Disposition: Brought to recovery room in stable condition Plan: Follow-up for 10-14 days for wound check and suture removal Indications: The patient is 43 years old, with a left middle finger trigger finger that has been unresponsive to nonoperative management. The risks and benefits of operative treatment including but not limited to risk of damage to blood vessels, nerves, tendons, infection, persistent pain, persistent symptoms, recurrence or possible need for additional surgery were discussed with the patient and the patient wishes to proceed with surgery. Procedure: Once consent was obtained a local block was performed in the preop area using a combination of 1% lidocaine with epinephrine. The patient was then brought back to the operating suite and placed on the operative table in supine position. The left upper extremity was prepped and draped in a standard surgical fashion. Once assured that we had a good block, a 1.5 cm oblique incision was made centered over the A1 domingo of the left middle finger . The incision was made through the skin to the subcutaneous tissues using a #15 blade. Careful dissection was made down to the level of the A1 domingo using tenotomy scissors, with care being taken to protect the nearby neurovascular structures. A longitudinal incision was made in the A1 domingo 1st using a #15 blade, then using tenotomy scissors under direct visualization. The A1 domingo was noted to be thickened. Following our A1 domingo release, we no longer saw any locking or catching of the digit with flexion and extension. Once satisfied with our A1 domingo release the wound was copiously irrigated with normal saline and hemostasis was obtained with a brief period of local pressure. The skin edges were reapproximated with some 5.0 nylon suture material and a sterile dressing was applied. The patient appears to have tolerated the procedure well and with no complications. All digits were well vascularized at the conclusion of the case.
[2024-01-13 18:18] VITALS: BP 126/78; PULSE 62; RESP 16; TEMP 36.6; O2SAT 98
== END 2024-01-13 18:34 | disposition home or self-care (01) ==
PROVIDERS: Visit Provider Orthopaedic Surgery
PROC: (CPT 26055; principal; 2024-01-13 13:50)
DX: M65.332 Trigger finger, left middle finger (principal); M25.642 Stiffness of left hand, not elsewhere classified; E78.00 Pure hypercholesterolemia, unspecified; Z56.0 Unemployment, unspecified
CPT/HCPCS: 26055; J0171; J2003

== ENCOUNTER → 2024-01-13 13:26 | Outpatient (BNV) | payer MEDICAID, SELFPAY | PROVIDERS: Visit Provider Orthopaedic Surgery | DX: M65.332 Trigger finger, left middle finger (principal) | CPT/HCPCS: 26055 ==

== ENCOUNTER 2024-01-28 14:53 | Outpatient (AMB) | payer MEDICAID, SELFPAY ==
--- NOTE | 2024-01-28 14:57 | MHC.OFFVIS ---
Intake Visit Reasons: PO LT MF trigger 01/13/24 AR Intake Note: Francy is a 43 year old female who presents to the office today for a PO LT MF trigger 01/13/24 AR. Pt states she is overall doing well. Pt states she is feeling well. She denies any numbness, tingling, or locking of her middle finger, Pt states she is able to make a fist but states her middle finger is still not fully closing when she makes a fist. Allergies No Known Allergies Allergy (Verified 01/28/24 14:57) HPI HPI PO LT MF trigger 01/13/24 AR: Details: Patient is a 43-year-old female who presents for postoperative evaluation status post left middle finger trigger release, DOS 01/13/[address] Pelaez. Today, the patient reports that she is feeling well, and that the left middle finger is no longer locking and catching. However, the patient expresses that she still has some difficulty with making a closed fist. Patient reports no concerns at the incision site. No other acute complaints or concerns at this time. [facility] Medical History History of high cholesterol Social History (Updated 11/20/23 @ 15:08 by HILLARY Marquez) Alcohol intake: never Patient Tobacco Use Status: Never used Tobacco Current occupational status: unemployed Current occupation: rt handed Physical Exam Extrem Other: Patient is alert, oriented, and in no acute distress. Neuro: Normal sensation of the tips of all digits of the left hand at this time Vascular: Cap refill brisk Pain: Patient reports no tenderness to palpation at the incision site at the level of the A1 domingo of the left middle finger Patient does report some mild discomfort with attempting to make a closed fist, particularly of the left middle finger, ROM With encouragement, patient is able to make a closed fist and extend all digits of the left hand fully and without difficulty Skin: Well approximated and well healing incision site noted on the left middle finger at the level of the A1 domingo No evidence of infection General: No ecchymosis, erythema, or evidence of infection. Psych: Appears grossly normal Affect normal Attitude cooperative Assessment & Plan Assessment & Plan (1) Trigger finger, left middle finger: Code(s): M65.332 - Trigger finger, left middle finger Category: Medical (2) Stiffness of finger joint of left hand: Comment: Left middle finger Code(s): M25.642 - Stiffness of left hand, not elsewhere classified Category: Medical Plan 1. Left middle finger trigger finger status post trigger release DOS 01/13/2024 Patient appears to be recovering well postoperatively Patient is educated about the typical recovery course At this time, patient is offered a course of occupational therapy for postoperative stiffness, but declines, stating that she feels she can work on range of motion herself Patient is given hand [id number] exercises in order to combat postoperative stiffness Patient is educated that it was an approximately 2-3 weeks she is still noticing pain and stiffness in the left hand, she should call for referral to occupational therapy Patient understands this and is amenable to this plan Patient will follow-up as needed with any acute concerns Coding Level of Care Code Global (08683) Diagnoses Trigger finger, left middle finger M65.332 Stiffness of finger joint of left hand M25.642
== END 2024-01-28 15:34 | disposition home or self-care (01) ==
PROVIDERS: PCP Physician Assistant
DX: M65.332 Trigger finger, left middle finger (principal); M25.642 Stiffness of left hand, not elsewhere classified
CPT/HCPCS: 99024

== ENCOUNTER → 2024-01-28 14:53 | Outpatient (BNVA) | payer MEDICAID, SELFPAY | PROVIDERS: PCP Physician Assistant | DX: M65.332 Trigger finger, left middle finger (principal); M25.642 Stiffness of left hand, not elsewhere classified | CPT/HCPCS: 99212 ==

== ENCOUNTER 2024-11-06 13:51 | Outpatient (AMB) | payer OTHER, SELFPAY ==
--- OUTSIDE RECORDS SUMMARY | 2024-11-06 13:54 | XMS_ITS | Encounter Summary ---
Author Organization [facility] Address [address] [place] [id number] Phone Care Team Providers Care Shipfitter Name Role Phone Unknown, Unknown Primary Care Provider Noreen Palm NP Primary Care Provider [phone] Encounter Details Date Type Department Care Team (Late st Contact Info) Description 08/01/2023 Procedure Pass OR Admitting Dept - Virtual Department [address] [place] [address] Social History Tobacco Use Types Packs/Day Years Used Date Smoking Tobacco: Some Days Cigarettes Passive Smoke Exposure: Never Smokeless Tobacco: Never Alcohol Use Standard Drinks/Week Comments Never 0 (1 standard drink = 0.6 oz pur e alcohol) Education Answer Date Recorded Are you interested in more education? Not on [employer] e 06/18/2023 Are you concerned about learning? Not on file 06/18/2023 No 06/18/2023 No 06/18/2023 Digital Access Answer Date Recorded No 06/18/2023 No 06/18/2023 Reliable internet access at home? Not on file 06/18/2023 Device with a working camera? Not on file Comments No Sex and Gender Information Value Date Recorded Sex Assigned at Female 12/13/2023 12:14 AM EDT Legal Sex Female 10:19 AM EDT Gender Identity Female 12/13/2023 12:14 AM EDT Sexual Orientation Straight 12/13/2023 12 :14 AM EDT documented as of this encounter Plan of Treatment Upcoming Encounters Date Type Department Care Team (Late st Contact Info) Description 11/19/2024 9:40 AM EDT Office Visit [facility] [address] [place] [address] [place] [id number] Jacob Hussein MD [address] [place] [address], [address] [place] [address] [email or web address] documented as of this encounter Visit Diagnoses Not on filedocumented in this encounter Care Teams Shipfitter Relationship Specialty Start Date End Date Unknown, Unknown, MD PCP - General 06/18/23 09/09/24 Noreen Coyle, B[employer] [address] [place] [id number] PCP - General Nurse Practitioner 09/10/24 documented as of this encounter Additional Source Comments The information contained in this document represents components of the legal health record. It is not the complete legal health record.[facility]
--- OUTSIDE RECORDS SUMMARY | 2024-11-06 13:54 | XMS_ITS | Clinical Summary ---
Author Organization [facility] Address [address] [place] [address] Care Team Providers Care Shell Freezing Machine Operator Name Role Phone Gabriela Sanabria PA-C Primary Care Provider + [phone] Source Comments PLEASE NOTE, if this patient is a minor, it may be UNLAWFUL to discuss sensitive information that is contained in these records (such as FAMILY PLANNING, MENTAL HEALTH or SUBSTANCE ABUSE) with the minor patient's parent or other person without the patient's specific authorization.[facility] Allergies No known active allergies Medications [id number] fum-folic [id number] [phone] mg-mcg-mg combo packIndications: Family planning Take 1 Tablet by mouth once daily 90 Each 3 06/21/2022 Active vit,mansi 18-[id number] ( LOW IRON) 27 mg iron- 1 mg tabIndications:F amily planning Take 1 Tablet by mouth daily. 90 Tablet 3 08/07/2022 Active Active Problems Problem Noted Date Diagnosed Date ASCUS with positive high risk HPV cervical 07/02 Elevated LDL cholesterol level 10/23/2021 Immunizations Immunization Administration Dates Next Due Flu, Preservative Free 12/26/2022,01/03/2022 Hep B, Adult/Adol ([id number]-[id number]/RECOMBIVAX-AD ULT) 11/03/2021 Hep B,adult,adjuvanted (HEPLISAV) 12/26/2022, MMR (MMR II/Priorix) 12/26/2023 Pf[facility] COVID-19 Vac cine Bivalent, (VELÁSQUEZ PFIZER-BIONTECH COVID-19 VACCINE BIVALENT, (VELÁSQUEZ CAP 01/03/2022 TDAP 10/23/2021 Varicella (Varivax), Live Vaccine 12/05/2021, Social History Tobacco Use Types Packs/Day Years Used Date Smoking Tobacco: Some Days Cigarettes Passive Smoke Exposure: Never Smokeless Tobacco: Never Tobacco Cessation:Ready to Q uit: Not Asked; Counseling Given: Not Answered Comments:sometimes Alcohol Use Standard Drinks/Week Comments Never 0 (1 standard drink = 0.6 oz pur e alcohol) Social Connections Answer Date Recorded Connectedness 1 10/02/2023 Financial Resource Strain Answer Date R ecorded Financial Resource Strain 1 2023 Stress Answer Date Recorded Stress 1 10/02/2023 Physical Activity Answer Date Recorded Physical Activity 0 01/05/2021 Food Insecurity Answer Date Recorded Food 1 10/02/2023 Transportation Needs Answer Date Record ed Transportation 1 10/02/2023 Housing Stability Answer Date Recorded Housing 1 10/02/2023 Safety and Environment Answer Date Jose rded Safety 1 10/02/2023 Utilities Answer Date Recorded Utilities 1 10/02/2023 Employment Answer Date Recorded Stress 0 06/26/2021 Comments Unknown Sex and Gender Information Value Date Recorded Sex Assigned at Female 01/05/2021 5:52 AM PDT Legal Sex Female 11:43 AM PDT Gender Identity Female 01/05/2021 5:52 AM PDT Sexual Orientation Straight 01/05/2021 5: 52 AM PDT Last Filed Vital Signs Vital Sign Reading Time Taken Comments Blood Pressure 114/80 06/10/2024 3:01 PM EST Pulse 56 06/10/2024 3:01 PM EST Temperature 36.2 C (97.2 F) 06/10/2024 3:01 PM EST Respiratory Rate 16 06/10/2024 3:01 PM EST Oxygen Saturation 100% 06/10/2024 3:01 PM EST Inhaled Oxygen Concentration - - Weight 79.8 kg (176 lb) 12/26/2023 10:41 AM EDT Height 167.6 cm (5' 6 ) 12/26/2023 10:41 AM EDT Body Mass Index 28.41 12/26/2023 10:41 AM EDT Plan of Treatment Health Maintenance Due Date Last Done Comments Anxiety Screening 1982 Dental FMX/Pano 1982 Dental Perio Charting 1982 HPV Screening 1982 Dental BW 06/18/2023 06/15/2022 Dental Examination 06/18/2023 06/15/2022 Dental Prophy 06/18/2023 06/15/2022 Alcohol and Drug Screen 04/08/2024 10/02/19 24, 12/26/2022, 10/23/2021, Additional history exists Depression Annual Screen 04/08/2024 10/02/2023 Tobacco Cessation Counseling (#1) 07/02/2024 Annual Wellness (Adult): Indicated (All Coverage) 10/01/2024 10/02/2023, 06/14/2022, 01/03/2022 Relationship Safety Screening/Counseling 10/01/2024 10/02/2023, 04/05/2022, 03/21/2021 Imm-Influenza (#1) 2024 12/26/2022, 01/03/2022 Hypertension Screening (#1) 06/10/2025 Pap Smear 06/14/2025 06/14/2022 Breast Cancer Screening (Mammogram) 10/27/2025 10/28/2023 Diabetes Screening 12/11/2026 12/12/2023, 0 10/02/2023, 07/03/2023, Additional history exists Cervical Cancer Screening 06/16/2027 Pap + HPV 06/16/2027 06/15/2022, 06/14/2022 Lipid Screening 10/01/2028 10/02/2023, 06/07, 04/10/2022, Additional history exists Imm-DTaP/Tdap/Td (2 - Td or Tdap) 10/24/2031 022 [id number] Discontinued 01/03/2022 Hepatitis C Screening Completed 12/26/2022, 022 Imm-Hepatitis B Completed 12/26/2022, 11/08, 11/03/2021 HIV Screening Completed 08/31/2023, 04/10/2022 Cervical Ablation/Cold-Knife Conization Discontinued Cervical Cryotherapy Discontinued Colposcopy Discontinued Endometrial Biopsy Discontinued Excision/Leep Discontinued HPV Genotyping Discontinued Imm-Pneumococcal Discontinued Vaginal Pap Discontinued Vulvoscopy Discontinued Procedures Procedure Name Priority Date/Time Associated Diagnosis Comments REFERRAL FOR MAMMOGRAM Routine 10/28/2023 3:00 AM EDT Breast cancer screening by mammogram COMPREHENSIVE METABOLIC PANEL Routine 10/02/2023 3:20 PM EDT Encounter for annual physical exam LIPID PANEL Routine 10/02/2023 3:20 PM EDT Encounter for annual physical exam HEPATITIS C AB W/RFLX HCV RNA, QT, RT PCR Routine 12/26/2022 4:02 PM EDT Screening for viral disease BITEWINGS - FOUR RADIOGRAPHIC IMAGES Routine 06/15/2022 10:20 AM EST Need for prophylactic measure PROPHYLAXIS - ADULT Routine 06/15/2022 1 0:20 AM EST Need for prophylactic measure PERIODIC ORAL EVALUATION ESTABLISHED PATIENT Routine 06/15/2022 10:20 AM EST Need for prophylactic measure THINPREP PAP & HPV MRNA E6/E7 RFLX HPV 16,18/[address]/NG Routine 06/14/2022 7:00 PM EST Encounter for Papanicolaou smear of vagina as part of routine gynecological examination Encounter for screening for human papillomavirus (HPV) HIV 1/2 AG & AB W/RFLX (4TH GEN) Routine 04/10/2022 10:37 AM EST Health care maintenance from Last 3 Months or Most Recently Relevant to Health Maintenance Results * REFERRAL FOR MAMMOGRAM SCREENING (10/28/2023 3:00 AM EDT) 10/28/2023 3:00 AM EDT Gabriela Sanabria PA-C IM[facility] RFL MAMMO Edited Resul t - Final * (ABNORMAL) LIPID PANEL (10/02/2023 3:20 PM EDT) CHOLESTEROL, TOTAL 255(H) <200 mg/dL [facility] HDL CHOLESTEROL 64 > OR = 50 mg/dL [facility] TRIGLYCERIDES 164(H) <150 mg/dL [facility] LDL-CHOLESTEROL 160(H) 99 mg/dL (calc) [facility] Comment: Reference range: <100 Desirable range <100 mg/dL for primary prevention; <70 mg/dL for patients with CHD or diabetic patients with > or = 2 CHD risk factors. LDL-C is now calculated using the Izaiah calculation, which is a validated novel method providing better accuracy than the Friedewald equation in the estimation of LDL-C. Paulo KEENAN et al. SHAI. 2013;310(19): 2210-2566 (http://education.NealyWear/faq/GEZ258) CHOL/HDLC RATIO 4.0 <5.0 (calc) [facility] NON-HDL CHOLESTEROL 191(H) <130 mg/dL (calc) [facility] Comment: For patients with diabetes plus 1 major ASCVD risk factor, treating to a non-HDL-C goal of <100 mg/dL (LDL-C of <70 mg/dL) is considered a therapeutic option. Blood Blood / Unknown 10/02/2023 3 :20 PM EDT 10/02/2023 3:21 PM EDT Gabriela Sanabria PA-C LAB - BLOOD DRAW Final Resul t [facility] [address] [place] [id number], [facility] [address] [address] * COMPREHENSIVE METABOLIC PANEL (10/02/2023 3:20 PM EDT) GLUCOSE 90 65 - 99 mg/dL [facility] Comment: Fasting reference interval UREA NITROGEN (BUN) 13 7 - 25 mg/dL [facility] CREATININE (blood) 0.80 0.50 - 0.99 mg/dL [facility] EGFR 95 > OR = 60 mL/min/1. 73m2 [facility] BUN/CREATININE RATIO SEE NOTE: [facility] Comment: Not Reported: BUN and Creatinine are within reference range. SODIUM 136 135 - 146 mmol/L [facility] POTASSIUM 4.5 3.5 - 5.3 mmol/L [facility] CHLORIDE 100 98 - 110 mmol/L [facility] CARBON DIOXIDE 31 20 - 32 mmol/L [facility] CALCIUM 9.5 8.6 - 10.2 mg/dL [facility] PROTEIN, TOTAL 7.5 6.1 - 8.1 g/dL [facility] ALBUMIN 4.3 3.6 - 5.1 g/dL [facility] GLOBULIN 3.2 1.9 - 3.7 g/dL (calc) [facility] ALBUMIN/GLOBULI N RATIO 1.3 1.0 - 2.5 (calc) [facility] BILIRUBIN, TOTAL 0.4 0.2 - 1.2 mg/dL [facility] ALKALINE PHOSPHATASE 55 31 - 125 U/L [facility] AST 24 10 - 30 U/L [facility] ALT 18 6 - 29 U/L [facility] Blood Blood / Unknown 10/02/2023 3 :20 PM EDT 10/02/2023 3:21 PM EDT us Gabriela Sanabria PA-C LAB - BLOOD DRAW Final Resul t Performing Organization Address [facility] Co de Phone Number [facility] [address] [address], [facility] [address] [address] * Hep C Ab w/Rflx (12/26/2022 4:02 PM EDT) HEPATITIS C ANTIBODY NON-REACT ELIJAH NON-REACT ELIJAH [facility] Comment: HCV antibody was non-reactive. There is no laboratory evidence of HCV infection. In most cases, no further action is required. However, if recent HCV exposure is suspected, a test for HCV RNA (test code 79302) is suggested. For additional information please refer to http://education.Queer[employer]/faq/ZKM89k5 (This link is being provided for informational/ educational purposes only.) Blood Blood / Unknown 12/26/2022 4 :02 PM EDT 12/26/2022 4:02 PM EDT us Gabriela Sanabria PA-C LAB - BLOOD DRAW Edited Resu lt - Final Performing Organization Address City/[facility]/ZIP Co de Phone Number [facility] [address] [address], [facility] [address] [place] [address] * THINPREP PAP & HPV MRNA E6/E7 RFLX HPV 16,18/[address]/NG (06/14/2022 7:00 PM EST) CHLAMYDIA TRACHOMATIS RNA, TMA NOT DETECTED NOT DETECTED [facility] NEISSERIA GONORRHOEAE RNA, TMA NOT DETECTED NOT DETECTED [facility] COMMENT [facility] CLINICAL INFORMATION See Note [facility] Comment:Routine exam LMP See Note [facility] Comment:[id number] PREV. PAP See Note [facility] [place] [facility] Comment:NONE GIVEN PREV. BX See Note [facility] Comment:NONE GIVEN SOURCE See Note [facility] Comment:Cervix STATEMENT OF ADEQUACY See Note [facility] Comment: Satisfactory for evaluation. Endocervical/transformation zone component present. INTERPRETATION/RESU LT See Note [facility] Comment:Negative for intraep ithelial lesion or malignancy. MARKETING PR INTERN See Note [facility] Comment: RXB, CT(ASCP) CT screening location: [address] [address] COMMENT [facility] HPV MRNA E6/E7 Not Detected Not Detected [facility] Comment: Methodology: Resource Manager-Mediated Amplification This assay detects E6/E7 viral messenger RNA (mRNA) from 14 high-risk HPV types (16,18,31,33,35,39,45,51,52,56,58,59,66,68). Cervical sources are required for HPV testing. If a vaginal source from a patient who has had a total hysterectomy with removal of cervix was submitted, please contact the testing laboratory for alternative testing options. For additional information, please refer to http://education.Queer[employer]/faq/WEK226q7 (This link if provided for information/ educational purposes only.) CYTOLOGY Cervix uteri structure / Unknown 06/14/2022 7:00 PM EST 06/18/2022 10:08 AM EDT Narrative [facility] - 06/20/2022 9:59 AM EDT EXPLANATORY NOTE: The Pap is a screening test for cervical cancer. It is not a diagnostic test and is subject to false negative and false positive results. It is most reliable when a satisfactory sample, regularly obtained, is submitted with relevant clinical findings and history, and when the Pap result is evaluated along with historic and current clinical information. The analytical performance characteristics of this assay, when used to test SurePath(TM) specimens have been determined by [employer]. The modifications have not been cleared or approved by the FDA. This assay has been validated pursuant to the CLIA regulations and is used for clinical purposes. For additional information, please refer to https://[employer].Queer[employer]/faq/CEX498 (This link is being provided for information/ educational purposes only.) us Naga Mayo MD LAB - PATHOLOGY AND CYTOLOGY AMB ULATORY Final Result [facility] [address] [place] [address] [address] [place] [address], [facility] [address] [place] [address] (2) [place] [address] * HIV 1/2 AG & AB W/RFLX (4TH GEN) (04/10/2022 10:37 AM EST) HIV AG/AB, 4TH GEN NON-REAC TIVE NON-REAC TIVE [facility] Comment: HIV-1 antigen and HIV-1/HIV-2 antibodies were not detected. There is no laboratory evidence of HIV infection. PLEASE NOTE: This information has been disclosed to you from records whose confidentiality may be protected by state law. If your state requires such protection, then the state law prohibits you from making any further disclosure of the information without the specific written consent of the person to whom it pertains, or as otherwise permitted by law. A general authorization for the release of medical or other information is NOT sufficient for this purpose. For additional information please refer to http://[employer]/faq/NSP220 (This link is being provided for informational/ educational purposes only.) The performance of this assay has not been clinically validated in patients less than 2 years old. Blood Blood / Unknown 04/10/2022 1 0:37 AM EST 04/10/2022 10:38 AM EST Narrative [facility] - 04/11/2022 2:45 AM EST FASTING:YES us Corona Olivares MD LAB - BLOOD DRAW Final Result [facility] [address] [facility] [address] [place] [address], [facility] [address] [facility] [place] [address] from Last 3 Months or Most Recently Relevant to Health Maintenance [place] [employer] Member Subscriber Plan / Payer (Ef fective 2024-Present) Name:Bhavesh Francy Relation to Subscriber:Self Name:Francy Ospina Payer ID:[id number] Type:Indemnity Address: [facility] [address] [place] [address] Care Teams Shell Freezing Machine Operator Relationship Specialty Start Date End Date Gabriela Sanabria PA-C [address] [place] [address] PCP - General FAMILY MEDICINE[place] 12/26/22
[2024-11-06 14:08] VITALS: BMI 32.6
--- NOTE | 2024-11-06 14:08 | MHC.OFFVIS ---
Vital Signs 11/06/24 14:08 Height 5 ft 2 in Weight 178 lb BMI 32.6 Intake Visit Reasons: New Problem - Left Index Finger Locking & Catching Intake Note: Francy is a 44 year old right hand dominant female who presents to the office today with new complaints of left index finger locking and catching. Patient reports symptoms began about 6 months ago. She denies numbness or tingling. She finds it most painful at night. She is not interested in a cortisone injection, at all. She wants to discuss trigger finger release. History of left middle trigger finger release by Dr. Pelaez, DOS: 01/13/24. Allergies No Known Allergies Allergy (Verified 11/08/24 15:26) HPI HPI New Problem - Left Index Finger Locking & Catching: Details: Franyc is a 44 year old right hand dominant female who presents to the office today with new complaints of left index finger locking and catching. Patient reports symptoms began about 6 months ago. She denies numbness or tingling. She finds it most painful at night. She is not interested in a cortisone injection, at all. She wants to discuss trigger finger release. History of left middle trigger finger release by Dr. Pelaez, DOS: 01/13/24. [facility] Medical History History of high cholesterol Social History (Updated 11/06/24 @ 14:12 by HILLARY Marquez) Alcohol intake: never Patient Tobacco Use Status: Never used Tobacco Current occupational status: unemployed Current occupation: rt handed, [employer] Review of Systems Const All systems reviewed & are unremarkable except as noted in HPI and below Physical Exam Vital Signs: BMI result Body Mass Index 32.6 Extrem Other: Patient is alert, oriented, and in no acute distress. Neuro: Normal sensation of the tips of all digits of the left hand at this time Vascular: Cap refill brisk Pain: Patient reports tenderness to palpation at the A1 domingo of the left index finger Pain associated with locking and catching of the left index finger ROM With encouragement, patient is able to make a closed fist and extend all digits of the left hand fully There is visible and palpable locking and catching of the left index finger in a flexed position Skin: No evidence of infection General: No ecchymosis, erythema, or evidence of infection. Psych: Appears grossly normal Affect normal Attitude cooperative Assessment & Plan Assessment & Plan (1) Trigger finger, left index finger: Code(s): M65.322 - Trigger finger, left index finger Category: Medical Plan 1. Trigger finger, left index finger I educated the patient about the condition. I discussed both operative and nonoperative treatment options. The patient would like to proceed with surgery. The risks and benefits of operative treatment were discussed with the patient and the patient wishes to proceed with surgery. These risks include, but are not limited to, risk of damage to blood vessels, nerves, tendons, infection, recurrence, incomplete relief of preoperative symptoms, persistent pain, possible need for further surgery, and the risks associated with regional blocks and/or anesthesia. Plan is to take the patient to the operating room at some point in the next few weeks for the following procedures: 1. Left index finger trigger release under local All of the preoperative paperwork including the consent was discussed today. All of the patient's questions were answered in the clinic today. The patient understands that they will be in contact with our surgical nurse practitioner to discuss scheduling their procedure. Patient denies diabetes, blood thinners, asthma, heart issues, lung issues, kidney issues, or current smoking. Coding Level of Care Code Est Pt Level 4 (76481) Diagnoses Trigger finger, left index finger M65.322
== END 2024-11-06 14:29 | disposition home or self-care (01) ==
LOC: HO.HOS 13:52
PROVIDERS: PCP Physician Assistant
DX: M65.322 Trigger finger, left index finger (principal)
CPT/HCPCS: 99214

== ENCOUNTER → 2024-11-06 13:51 | Outpatient (BNVA) | payer SELFPAY | PROVIDERS: PCP Physician Assistant | DX: M65.322 Trigger finger, left index finger (principal) | CPT/HCPCS: 99212 ==

== ENCOUNTER 2024-11-08 15:17 | Emergency (ER) | payer OTHER, SELFPAY ==
[2024-11-08 15:24] VITALS: BP 140/87; PULSE 82; RESP 18; TEMP 36.6; O2SAT 98; BMI 24.8
--- NOTE | 2024-11-08 15:25 | ED_ITS ---
HPI - Female Genitourinary General Chief complaint: Urogenital-Female Stated complaint: frequency urinating Time Seen by Provider: 11/08/24 15:57 Source: patient Mode of arrival: ambulatory Limitations: no limitations History of Present Illness ED Provider: radha banuelos stock speculator HPI Narrative: Patient is a 44-year-old female who presents emergency department for evaluation of Two days with urinary frequency, urgency, and hesitancy. Reports home testing negative last week. Actively trying to become . LMP 10/29/24. denies fevers, chills, nausea, vomiting, abdominal or back pain. Related Data Home Medications ?Medication ?Instructions ?Recorded ?Confirmed vitamin with calcium 1 tab PO DAILY 01/28/24 no.72-iron 27 mg-folic acid 1 mg tablet (WesTab Plus) Previous Rx's ?Medication ?Instructions ?Recorded cefuroxime axetil 250 mg tablet 250 mg PO BID #10 tabs 11/08/24 Allergies Allergy/AdvReac Type Severity Reaction Status Date / Time No Known Allergies Allergy Verified 11/08/24 15:26 Review of Systems Review of Systems: Yes all other systems are reviewed and are negative [facility] Past Medical History Attestation statement: The following information was validated with the patient. 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 No acute distress.?Normal affect. CVS: Heart sounds normal. Normal heart rate and rhythm.? Pulses normal.?? Respiratory: No respiratory distress.? Lung sounds clear to auscultation bilaterally?? Abdomen: Soft and non-tender. Normoactive bowel sounds. No CVA tenderness? Skin: Skin warm and dry.? Normal skin color.? Extremities: No lower extremity edema.? Neuro: Moves all extremities spontaneously. Sensation intact bilaterally. Ambulates with normal steady gait. Vital Signs: Vital Signs: Last Vital Signs Temp 98 F 11/08/24 15:24 Pulse 82 11/08/24 15:24 Resp 18 11/08/24 15:24 BP 140/87 H 11/08/24 15:24 Pulse Ox 98 11/08/24 15:24 O2 Del Method Room Air 11/08/24 15:24 BMI result Body Mass Index 24.8 Medical Decision Making Medical Decision Making [facility] Narrative: Patient is a 44-year-old female who presents emergency department for evaluation of urinary frequency/urgency/hesitancy as per HPI. Overall she is well- appearing, nontoxic, afebrile. She has a benign abdominal examination. Urinalysis with leukocyte esterase and 1+ urine bacteria, this coupled with symptoms concerning for early urinary tract infection, no microscopic hematuria. No CVAT to suggest renal colic secondary to calculi or pyelonephritis. HCG is negative, not consistent with ectopic . No unilateral abdominal pain or tenderness on examination, denies concern for sexually transmitted infection, denies history of ovarian cysts lower suspicion for tubo-ovarian abscess/ PID, ovarian torsion, ruptured ovarian cyst. Stable for discharge home, reviewed [facility] return precautions, outpatient follow-up with primary care provider. All questions answered. Prescription for antibiotic symptoms pharmacy. Differential Diagnosis Differential Diagnoses: The differential diagnosis associated with the presentation includes (See narrative above) Lab Data [facility] Lab Attestation statement: I reviewed the patient's lab results. Labs: Lab Results 11/08/24 Range/Units 15:37 Urine Color Yellow Urine Appearance Clear Urine pH 5.5 (5.0-9.0) Ur Specific [place] 1.020 (1.005-1.025) Urine Protein Negative (Neg-Trace) mg/dL Urine Glucose (UA) Negative (Negative) mg/dL Urine Ketones Trace (Negative) mg/dL Urine Blood Negative (Negative) Urine Nitrite Negative (Negative) Ur Leukocyte Esterase Small (1+) H (Negative) Urine RBC 0-2 (0-2) /HPF Urine WBC 0-5 (0-5) /HPF Ur Squamous Epith Cells 6-10 (0-2) /HPF Urine Bacteria 1+ (None Seen) Hyaline Casts 0-2 (0-2) /LPF Urine Test NEGATIVE (NEGATIVE) External Record Review External record reviewed: Outpatient record Prescription Management I considered prescription management with: Antibiotic Discharge Plan Discharge Clinical Impression: Urinary tract infection Patient Disposition: Home, Self-Care Instructions: Urinary Tract Infection in Women (ED) Additional Instructions: Testing today is concerning for an early urinary tract infection which would result in you having the urinary symptoms. test is negative. I sent a prescription for antibiotic to your pharmacy please complete the entire course not skip any doses or stop taking early even if you begin to feel better. It is very important to use a back-up form of control, such as barrier condoms/abstinence, while on antibiotics and for one week after as they may be ineffective in preventing while on the antibiotics. While taking antibiotics, please include probiotics that can be found over the counter or yogurt in your diet. If symptoms of a yeast infection or diarrhea occur, please seek evaluation. Follow-up with your primary care doctor. Prescriptions: New cefuroxime axetil 250 mg tablet 250 mg PO BID Qty: 10 0RF No Action WesTab Plus 27 mg iron- 1 mg tablet 1 tab PO DAILY Referrals: Physician,Unknown J [Primary Care Provider, Medical] Print Language: Maori
[2024-11-08 15:56] LABS: Appearance Urine Clear; Glucose Urine UA Negative (Negative); PH 5.5 (5.0-9.0); Specific Gravity - Urine 1.020 (1.005-1.025); UMIC TRIGGER UACC YES; UPreg QC Valid YES
[2024-11-08 16:07] LABS: UACC Culture Trigger YES
--- OUTSIDE RECORDS SUMMARY | 2024-11-08 16:10 | XMS_ITS | Encounter Summary ---
Author Organization [facility] Address [address] [place] [address] Phone Care Team Providers Care Bus And Trolley Dispatcher Name Role Phone Unknown, Unknown Primary Care Provider Noreen Palm NP Primary Care Provider [phone] Encounter Details Date Type Department Care Team (Late st Contact Info) Description 08/01/2023 Procedure Pass OR Admitting Dept - Virtual Department [address] [place] [address] Social History Tobacco Use Types Packs/Day Years [...] Office Visit [facility] [address] [place] [address] [place] [address] Jacob Hussein MD [address] [place] [address], [address] [place] [address] [email or web address] documented as of this encounter Visit Diagnoses Not on filedocumented in this encounter Care Teams Bus And Trolley Dispatcher Relationship Specialty Start Date End Date Unknown, Unknown, MD PCP - General 06/18/23 09/09/24 Noreen Coyle, SHIPPING SUPPORT [address] [place] [id number] PCP - General Nurse Practitioner 09/10/24 documented as of this encounter Additional Source Comments The information contained in this document represents components of the legal health record. It is not the complete legal health record.[facility]
--- OUTSIDE RECORDS SUMMARY | 2024-11-08 16:10 | XMS_ITS | Clinical Summary ---
Author Organization [facility] Address [address] [place] [address] Care Team Providers Care Night Shift Name Role Phone Gabriela Sanabria PA-C Primary Care Provider + [phone] Source Comments PLEASE NOTE, if this patient is a minor, it may be UNLAWFUL to discuss sensitive information that is contained in these records (such as FAMILY PLANNING, MENTAL HEALTH or SUBSTANCE ABUSE) with the minor patient's parent or other person without the patient's specific authorization.[facility] Allergies No known active allergies Medications uvzkeh24-fchr fum-folic ac-om3 [phone] mg-mcg-mg combo packIndications: Family planning Take 1 Tablet by mouth once daily 90 Each 3 06/21/2022 Active vit,mansi 28-dnll-bzcmn ( LOW IRON) 27 mg iron- 1 mg tabIndications:F amily planning Take 1 Tablet by mouth daily. 90 Tablet 3 08/07/2022 Active Active Problems Problem Noted Date Diagnosed Date ASCUS with positive high risk HPV cervical 07/02 Elevated LDL cholesterol level 10/23/2021 Immunizations Immunization Administration Dates Next Due Flu, Preservative Free 12/26/2022,01/03/2022 Hep B, Adult/Adol (VFHFSEW-Z-HQOQB/RECOMBIVAX-AD ULT) 11/03/2021 Hep B,adult,adjuvanted (HEPLISAV) 12/26/2022, MMR (MMR II/Priorix) 12/26/2023 Pfizer-BioNTStatim Health COVID-19 Vac cine Bivalent, (VELÁSQUEZ PFIZER-BIONTECH COVID-19 [...] (2 - Td or Tdap) 10/24/2031 022 Poz-[id number]-70 Discontinued 01/03/2022 Hepatitis C Screening Completed 12/26/2022, [...] PM EDT) CHOLESTEROL, TOTAL 255(H) <200 mg/dL [facility] HDL CHOLESTEROL 64 > OR = 50 mg/dL [facility] TRIGLYCERIDES 164(H) <150 mg/dL [facility] LDL-CHOLESTEROL 160(H) 99 mg/dL (calc) [facility] Comment: Reference range: <100 Desirable range <100 mg/dL for primary prevention; <70 mg/dL for patients with CHD or diabetic patients with > or = 2 CHD risk factors. LDL-C is now calculated using the Izaiah calculation, which is a validated novel method providing better accuracy than the Friedewald equation in the estimation of LDL-C. Paulo KEENAN et al. SHAI. 2013;310(19): 4223-3137 (http://education.Shareablee/faq/TRH498) CHOL/HDLC RATIO 4.0 <5.0 (calc) [facility] NON-HDL CHOLESTEROL 191(H) <130 mg/dL (calc) [facility] Comment: For patients with diabetes plus 1 major ASCVD risk factor, treating to a non-HDL-C goal of <100 mg/dL (LDL-C of <70 mg/dL) is considered a therapeutic option. Blood Blood / Unknown 10/02/2023 3 :20 PM EDT 10/02/2023 3:21 PM EDT Gabriela Sanabria PA-C LAB - BLOOD DRAW Final Resul t [facility] [address] [place] [address], [facility] [address] [address] * COMPREHENSIVE METABOLIC PANEL (10/02/2023 3:20 PM EDT) GLUCOSE 90 65 - 99 mg/dL [facility] Comment: Fasting reference interval UREA NITROGEN (BUN) 13 7 - 25 mg/dL [facility] CREATININE (blood) 0.80 0.50 - 0.99 mg/dL [facility] EGFR 95 > OR = 60 mL/min/1. 73m2 [facility] BUN/CREATININE RATIO SEE NOTE: [facility] Comment: Not Reported: BUN and Creatinine are within reference range. SODIUM 136 135 - 146 mmol/L [facility] POTASSIUM 4.5 3.5 - 5.3 mmol/L [facility] CHLORIDE 100 98 - 110 mmol/L [facility] CARBON DIOXIDE 31 20 - 32 mmol/L [facility] CALCIUM 9.5 8.6 - 10.2 mg/dL [facility] PROTEIN, TOTAL 7.5 6.1 - 8.1 g/dL [facility] ALBUMIN 4.3 3.6 - 5.1 g/dL [facility] GLOBULIN 3.2 1.9 - 3.7 g/dL (calc) [facility] ALBUMIN/GLOBULI N RATIO 1.3 1.0 - 2.5 (calc) [facility] BILIRUBIN, TOTAL 0.4 0.2 - 1.2 mg/dL [facility] ALKALINE PHOSPHATASE 55 31 - 125 U/L [facility] AST 24 10 - 30 U/L [facility] ALT 18 6 - 29 U/L [facility] Blood Blood / Unknown 10/02/2023 3 :20 PM EDT 10/02/2023 3:21 PM EDT us Gabriela Sanabria PA-C LAB - BLOOD DRAW Final Resul t Performing Organization Address [facility] Co de Phone Number [facility] [address] [address], [facility] [address] [address] * Hep C Ab w/Rflx (12/26/2022 4:02 PM EDT) HEPATITIS C ANTIBODY NON-REACT ELIJAH NON-REACT ELIJAH [facility] Comment: HCV antibody was non-reactive. There is no laboratory evidence of HCV infection. In most cases, no further action is required. However, if recent HCV exposure is suspected, a test for HCV RNA (test code 16811) is suggested. For additional information please refer to http://education.ModuleQ/faq/BPO84p4 (This link is being provided for informational/ educational purposes only.) Blood Blood / Unknown 12/26/2022 4 :02 PM EDT 12/26/2022 4:02 PM EDT us Gabriela Sanabria PA-C LAB - BLOOD DRAW Edited Resu lt - Final Performing Organization Address City/[facility]/ZIP Co de Phone Number [facility] [address] [address], [facility] [address] [place] [address] * THINPREP PAP & HPV MRNA E6/E7 RFLX HPV 16,18/[address]/NG (06/14/2022 7:00 PM EST) CHLAMYDIA TRACHOMATIS RNA, TMA NOT DETECTED NOT DETECTED [facility] NEISSERIA GONORRHOEAE RNA, TMA NOT DETECTED NOT DETECTED [facility] COMMENT [facility] CLINICAL INFORMATION See Note [facility] Comment:Routine exam LMP See Note [facility] Comment:[id number] PREV. PAP See Note [facility] [place] [facility] Comment:NONE GIVEN PREV. BX See Note [facility] Comment:NONE GIVEN SOURCE See Note [facility] [place] [facility] Comment:Cervix STATEMENT OF ADEQUACY See Note [facility] Comment: Satisfactory for evaluation. Endocervical/transformation zone component present. INTERPRETATION/RESU LT See Note [facility] Comment:Negative for intraep ithelial lesion or malignancy. METAL CONTROL WORKER See Note [facility] Comment: RXB, CT(ASCP) CT screening location: [address] [address] COMMENT [facility] HPV MRNA E6/E7 Not Detected Not Detected [facility] Comment: Methodology: Pe Teacher-Mediated Amplification This assay detects E6/E7 viral messenger RNA (mRNA) from 14 high-risk HPV types (16,18,31,33,35,39,45,51,52,56,58,59,66,68). Cervical sources are required for HPV testing. If a vaginal source from a patient who has had a total hysterectomy with removal of cervix was submitted, please contact the testing laboratory for alternative testing options. For additional information, please refer to http://education.ModuleQ/faq/ZSI960m6 (This link if provided for information/ educational purposes only.) CYTOLOGY Cervix uteri structure / Unknown 06/14/2022 7:00 PM EST 06/18/2022 10:08 AM EDT Narrative [facility] - 06/20/2022 9:59 AM EDT EXPLANATORY NOTE: [...] test SurePath(TM) specimens have been determined by [facility]. The modifications have not been cleared or approved by the FDA. This assay has been validated pursuant to the CLIA regulations and is used for clinical purposes. For additional information, please refer to https://[place].ModuleQ/faq/HEK923 (This link is being provided for information/ educational purposes only.) us Naga Mayo MD LAB - PATHOLOGY AND CYTOLOGY AMB ULATORY Final Result [facility] [address] [place] [address] [address] [place] [address], [facility] [address] [place] [address] (2) [place] [address] * HIV 1/2 AG & AB W/RFLX (4TH GEN) (04/10/2022 10:37 AM EST) HIV AG/AB, 4TH GEN NON-REAC TIVE NON-REAC TIVE [facility] Comment: HIV-1 antigen and HIV-1/HIV-2 antibodies were [...] purpose. For additional information please refer to http://[place].ModuleQ/faq/DCJ444 (This link is being provided for informational/ [...] Final Result [facility] [address] [facility] [address] [place] [address], [facility] [address] [facility] (NL2) [place] [address] from Last 3 Months or Most Recently Relevant to Health Maintenance Insurance [place] MEDICAID D[place] [email or web address] Member Subscriber Plan / Payer (Ef fective 2024-Present) Name:Bhavesh Francy Relation to Subscriber:Self Name:Francy Ospina Payer ID:[id number] Type:Indemnity Address: [facility] [address] [place] [address] Care Teams Night Shift Relationship Specialty Start Date End Date Gabriela Sanabria PA-C [address] [place] [address] PCP - General FAMILY MEDICINE, [place] 12/26/22
[2024-11-08 16:44] VITALS: BP 140/87; PULSE 82; RESP 18; TEMP 36.6; O2SAT 98
== END 2024-11-08 16:45 | disposition home or self-care (01) ==
PROVIDERS: Nurse Practitioner Family; Emergency Provider Emergency Medicine
DX: N39.0 Urinary tract infection, site not specified (principal); R35.0 Frequency of micturition; R39.15 Urgency of urination
CPT/HCPCS: 81001; 81025; 87086; 99282; 99283

== ENCOUNTER 2024-11-12 10:19 | Day surgery (SDC) | payer OTHER, SELFPAY ==
--- OUTSIDE RECORDS SUMMARY | 2024-11-09 10:20 | XMS_ITS | Encounter Summary ---
Author Organization [facility] Address [address] [place] [address] [place] [address] Phone Care Team Providers Care Counselor Camp Name Role Phone Unknown, Unknown Primary Care Provider Noreen Palm NP Primary Care Provider [phone] Encounter Details Date Type Department Care Team (Late st Contact Info) Description 02/03/2024 Procedure Pass OR Admitting Dept - Virtual Department [address] [place] [address] Social History Tobacco Use Types Packs/Day Years Used Date Smoking Tobacco: Former Cigarettes Passive Smoke Exposure: Never Smokeless Tobacco: Never Comments:Quit 6-7 months ago (as of 01/27/24) Alcohol Use Standard Drinks/Week Comments Never 0 [...] with a working camera? Not on file Intimate Partner Violence Answer Date R ecorded Are you denied basic needs s uch as food, clothing, or medical care? No 02/03/2024 In the past 12 months have y ou been in a relationship with a person who hurts, threatens, or tries to control you? No 02/03/2024 Are you denied basic needs s uch as food, clothing, or medical care? No 02/03/2024 In the past 12 months have y ou been in a relationship with a person who hurts, threatens, or tries to control you? No 02/03/2024 Comments No Sex and Gender Information Value [...] Office Visit [facility] [address] [place] [address] [place] [address] Jacob Hussein MD [address] [place] [address], [address] [place] [address] [email or web address] documented as of this encounter Visit Diagnoses Not on filedocumented in this encounter Care Teams Counselor Camp Relationship Specialty Start Date End Date Unknown, Unknown, PCP - General 06/18/23 09/09/24 Noreen Coyle, M50 M60 ARMOR CREWMAN [address] [place] [phone] PCP - General Nurse Practitioner 09/10/24 documented as of this encounter Additional Source Comments The information contained in this document represents components of the legal health record. It is not the complete legal health record.[facility]
[2024-11-12 10:30] VITALS: BMI 27.5
--- NOTE | 2024-11-12 10:38 | MHC.SHP ---
Pre-Procedural Eval Section A - 24 Hr Update-Section A only Date of Service: 11/12/24 The patient is an INPATIENT: No Changes since office visit: No Cold of Flu in the past 2 weeks, No New Medical Problems, No Changes in Medication and No Patient answered all questions The patient has been examined within 24 hours of the surgical procedure. The History & Physical has been completed within 30 days and I have reviewed it.: Yes Section B - Complete if H&P > 30 days Chief Complaint: Trigger finger, left index finger Allergies: Allergies Allergy/AdvReac Type Severity Reaction Status Date / Time No Known Allergies Allergy Verified 11/08/24 15:26 Plan Diagnosis/Plan: Unchanged I have reviewed the history and physical and performed a pertinent physical examination on my patient. No changes have occurred unless specified. Time Spent With Patient Time: Total time managing care of this patient today ____ minutes.
--- NOTE | 2024-11-12 10:39 | P.OP_ITS ---
Operative Note Operative Note Date of Service: 11/12/24 Narrative: Operative Note Preop diagnosis: 1. Left index finger Trigger finger Postop diagnosis: Same Procedure: 1. Left index finger A1 domingo release Surgeon: Enma Pelaez MD Senior Budget Analyst: Ed AVILA Anesthesia: local block using 1% lidocaine with epinephrine Findings: No locking or catching after A1 domingo release EBL: Less than 5 mL Tourniquet time: None Specimens: None Complications: None Disposition: Brought to recovery room in stable condition Plan: Follow-up for 10-14 days for wound check and suture removal Indications: The patient is 44 years old, with a left index finger trigger finger that has been unresponsive to nonoperative management. The risks and benefits of operative treatment including but not limited to risk of damage to blood vessels, nerves, tendons, infection, persistent pain, persistent symptoms, recurrence or possible need for additional surgery were discussed with the patient and the patient wishes to proceed with surgery. Procedure: Once consent was obtained a local block was performed in the preop area using a combination of 1% lidocaine with epinephrine. The patient was then brought back to the operating suite and placed on the operative table in supine position. The left upper extremity was prepped and draped in a standard surgical fashion. Once assured that we had a good block, a 1.5 cm oblique incision was made centered over the A1 domingo of the left index finger . The incision was made through the skin to the subcutaneous tissues using a #15 blade. Careful dissection was made down to the level of the A1 domingo using tenotomy scissors, with care being taken to protect the nearby neurovascular structures. A longitudinal incision was made in the A1 domingo 1st using a #15 blade, then using tenotomy scissors under direct visualization. The A1 domingo was noted to be thickened. Following our A1 dominog release, we no longer saw any locking or catching of the digit with flexion and extension. Once satisfied with our A1 domingo release the wound was copiously irrigated with normal saline and hemostasis was obtained with a brief period of local pressure. The skin edges were reapproximated with some 5.0 nylon suture material and a sterile dressing was applied. The patient appears to have tolerated the procedure well and with no complications. All digits were well vascularized at the conclusion of the case.
[2024-11-12 10:42] VITALS: BP 113/75; PULSE 78; RESP 16; TEMP 36.7; O2SAT 97
== END 2024-11-12 13:24 | disposition home or self-care (01) ==
PROVIDERS: Visit Provider Orthopaedic Surgery
PROC: (CPT 26055; principal; 2024-11-12 12:00)
DX: M65.322 Trigger finger, left index finger (principal); M24.842 Other specific joint derangements of left hand, not elsewhere classified; Z56.0 Unemployment, unspecified
CPT/HCPCS: 26055; J0165; J2003

== ENCOUNTER → 2024-11-12 10:19 | Outpatient (BNV) | payer OTHER, SELFPAY | PROVIDERS: Visit Provider Orthopaedic Surgery | DX: M65.322 Trigger finger, left index finger (principal) | CPT/HCPCS: 26055 ==

== ENCOUNTER 2024-11-23 13:55 | Outpatient (AMB) | payer OTHER, SELFPAY ==
--- NOTE | 2024-11-23 13:58 | MHC.OFFVIS ---
Intake Visit Reasons: PO LT IF trigger 11/12/24 AR Intake Note: Francy is a 44 year old right hand dominant female who presents today post-operatively status post Left Index Trigger Finger Release performed by Dr. Peleaz on 11/12/24. Patient reports she had swelling, redness, and warmness to the touch the night of surgery however, patient also states the dressing was not removed until 6 days after. She is having trouble making a fist. She has some concerns on the lumps on incision site. Denies finger locking. She is no longer taking narcotics for pain. Sutures were removed and steri strips applied. Allergies No Known Allergies Allergy (Verified 11/23/24 14:10) HPI HPI PO LT IF trigger 11/12/24 AR: Details: Francy is a 44 year old right hand dominant female who presents today post-operatively status post Left Index Trigger Finger Release performed by Dr. Pelaez on 11/12/24. Patient reports she had swelling, redness, and warmness to the touch the night of surgery however, patient also states the dressing was not removed until 6 days after. She is having trouble making a fist. She has some concerns on the lumps on incision site. Denies finger locking. She is no longer taking narcotics for pain. Sutures were removed and steri strips applied. [facility] Medical History (Updated 11/12/24 @ 10:33 by Monica Porter RN) Trigger middle finger of left hand History of high cholesterol Surgical History (Updated 11/12/24 @ 10:34 by Monica Porter RN) History of surgery Social History (Updated 11/06/24 @ 14:12 by HILLARY Marquez) Alcohol intake: never Patient Tobacco Use Status: Never used Tobacco Current occupational status: unemployed Current occupation: rt handed, SERVICE CENTER REPRESENTATIVE Review of Systems Const All systems reviewed & are unremarkable except as noted in HPI and below Physical Exam Extrem Other: Patient is alert, oriented, and in no acute distress. Neuro: Normal sensation of the tips of all digits of the left hand at this time Vascular: Cap refill brisk Pain: Patient reports no further tenderness to palpation at the A1 domingo of the left index finger No locking or catching of the left index finger ROM With encouragement, patient is able to make a closed fist and extend all digits of the left hand fully Skin: Some edema noted of the left index finger No evidence of infection General: No ecchymosis, erythema, or evidence of infection. Psych: Appears grossly normal Affect normal Attitude cooperative Assessment & Plan Assessment & Plan (1) Trigger finger, left index finger: Code(s): M65.322 - Trigger finger, left index finger Category: Medical Plan 1. Status post left index finger trigger release DOS 11/12/2024 Patient appears to be recovering very well postoperatively Patient is educated about the typical recovery course, including no submerging the hand for 1 more week and 2 lb weight limit for a further 2 weeks Sutures removed and Steri-Strips applied in the office today without issue Due to the very minor stiffness patient appears to be experiencing, I have given her some exercises to improve her range of motion Patient is also offered a referral to occupational therapy, but declines, stating that her work schedule is too busy Follow-up as needed with any acute concerns, particularly if range of motion does not improve Coding Level of Care Code Global (02255) Diagnoses Trigger finger, left index finger M65.322
--- OUTSIDE RECORDS SUMMARY | 2024-11-23 14:44 | XMS_ITS | Encounter Summary ---
Author Organization [facility] Address [address] [place] [address] Phone Care Team Providers Care Insulation Cupola Charger Name Role Phone Unknown, Unknown Primary Care Provider Noreen Palm NP Primary Care Provider Encounter Details Date Type Department Care Team (Late st Contact Info) Description 08/01/2023 Procedure Pass OR Admitting Dept - Virtual Department [address] [place] [address] Social History Tobacco Use Types Packs/Day Years [...] as of this encounter Plan of Treatment Not on file documented as of this encounter Visit Diagnoses Not on filedocumented in this encounter Care Teams Insulation Cupola Charger Relationship Specialty Start Date End Date Unknown, Unknown, PCP - General 06/18/23 09/09/24 Noreen Coyle, STRATEGIC ACCOUNT DIRECTOR [address] [place] [address] PCP - General Nurse Practitioner 09/10/24 documented as of this encounter Additional Source Comments The information contained in this document represents components of the legal health record. It is not the complete legal health record.[facility]
--- OUTSIDE RECORDS SUMMARY | 2024-11-23 14:44 | XMS_ITS | Clinical Summary ---
Author Organization [facility] Address [address] [place] [address] Care Team Providers Care Data Processing Systems Consultant Name Role Phone Gabriela Sanabria PA-C Primary Care Provider + [phone] Source Comments PLEASE NOTE, if this patient is a minor, it may be UNLAWFUL to discuss sensitive information that is contained in these records (such as FAMILY PLANNING, MENTAL HEALTH or SUBSTANCE ABUSE) with the minor patient's parent or other person without the patient's specific authorization.[facility] Allergies No known active allergies Medications -xuva fum-folic ac-om3 [phone] mg-mcg-mg combo packIndications: Family planning Take 1 Tablet by mouth once daily 90 Each 3 06/21/2022 Active vit,mansi 26-wgby-dxkcc ( LOW IRON) 27 mg iron- 1 mg tabIndications:F amily planning Take 1 Tablet by mouth daily. 90 Tablet 3 08/07/2022 Active Active Problems Problem Noted Date Diagnosed Date ASCUS with positive high risk HPV cervical 07/02 Elevated LDL cholesterol level 10/23/2021 Immunizations Immunization Administration Dates Next Due Flu, Preservative Free 12/26/2022,01/03/2022 Hep B, Adult/Adol ([id number]/RECOMBIVAX-AD ULT) 11/03/2021 Hep B,adult,adjuvanted (HEPLISAV) 12/26/2022, MMR (MMR II/Priorix) 12/26/2023 Pfizer-BioNTDelfigo Security COVID-19 Vac cine Bivalent, (VELÁSQUEZ PFIZER-BIONTECH COVID-19 [...] (2 - Td or Tdap) 10/24/2031 022 [id number] Discontinued 01/03/2022 Hepatitis C Screening Completed 12/26/2022, 022 Imm-Hepatitis B Completed 12/26/2022, 11/08, 11/03/2021 HIV Screening Completed 08/31/2023, 04/10/2022 Cervical Ablation/Cold-Knife Conization Discontinued Cervical Cryotherapy Discontinued Colposcopy Discontinued Endometrial Biopsy Discontinued Excision/Leep Discontinued HPV Genotyping Discontinued Imm-Pneumococcal Discontinued Vaginal Pap Discontinued Vulvoscopy Discontinued Procedures Procedure Name Priority Date/Time Associated Diagnosis Comments REFERRAL SCANNED DOCUMENT 11/06/2024 3:00 AM EDT REFERRAL FOR MAMMOGRAM Routine 10/28/2023 3:00 AM [...] Relevant to Health Maintenance Results * REFERRAL SCANNED DOCUMENT (11/06/2024 3:00 AM EDT) 11/06/2024 3:00 AM EDT us Gabriela Sanabria PA-C SCAN REFERRAL Final Result * REFERRAL FOR MAMMOGRAM SCREENING (10/28/2023 3:00 AM EDT) 10/28/2023 3:00 AM EDT us Gabriela Sanabria PA-C IMG RFL MAMMO Edited Resul t - Final * (ABNORMAL) LIPID PANEL (10/02/2023 3:20 PM EDT) Pathologist [facility] CHOLESTEROL, TOTAL 255(H) <200 mg/dL [facility] HDL CHOLESTEROL 64 > OR = 50 mg/dL [facility] TRIGLYCERIDES 164(H) <150 mg/dL [facility] LDL-CHOLESTEROL 160(H) 99 mg/dL (calc) [facility] Comment: Reference range: <100 Desirable range <100 mg/dL for primary prevention; <70 mg/dL for patients with CHD or diabetic patients with > or = 2 CHD risk factors. LDL-C is now calculated using the Izaiah calculation, which is a validated novel method providing better accuracy than the Friedewald equation in the estimation of LDL-C. Paulo SS et al. SHAI. 2013;310(19): 3264-7074 (http://education.alphacityguides/faq/MNY163) CHOL/HDLC RATIO 4.0 <5.0 (calc) [facility] NON-HDL CHOLESTEROL 191(H) <130 mg/dL (calc) [facility] Comment: For patients with diabetes plus 1 major ASCVD risk factor, treating to a non-HDL-C goal of <100 mg/dL (LDL-C of <70 mg/dL) is considered a therapeutic option. Blood Blood / Unknown 10/02/2023 3 :20 PM EDT 10/02/2023 3:21 PM EDT us Gabriela Sanabria PA-C LAB - BLOOD DRAW Final Resul t [facility] [address] [address], [facility] [address] [address] * COMPREHENSIVE METABOLIC PANEL (10/02/2023 3:20 PM EDT) [facility] GLUCOSE 90 65 - 99 mg/dL [facility] Comment: Fasting reference interval UREA NITROGEN (BUN) 13 7 - 25 mg/dL [facility] CREATININE (blood) 0.80 0.50 - 0.99 mg/dL [facility] EGFR 95 > OR = 60 mL/min/1. 73m2 [facility] BUN/CREATININE RATIO SEE NOTE: 6 - [facility] Comment: Not Reported: BUN and Creatinine are within reference range. SODIUM 136 135 - 146 mmol/L [facility] POTASSIUM 4.5 3.5 - 5.3 mmol/L [facility] CHLORIDE 100 98 - 110 mmol/L [facility] CARBON DIOXIDE 31 20 - 32 mmol/L [facility] CALCIUM 9.5 8.6 - 10.2 mg/dL [facility] PROTEIN, TOTAL 7.5 6.1 - 8.1 g/dL [facility] ALBUMIN 4.3 3.6 - 5.1 g/dL [facility] GLOBULIN 3.2 1.9 - 3.7 g/dL (calc) [facility] ALBUMIN/GLOBULI N RATIO 1.3 1.0 - 2.5 (calc) [facility] BILIRUBIN, TOTAL 0.4 0.2 - 1.2 mg/dL [facility] ALKALINE PHOSPHATASE 55 31 - 125 U/L [facility] AST 24 10 - 30 U/L [facility] ALT 18 6 - 29 U/L [employer] Blood Blood / Unknown 10/02/2023 3 :20 PM EDT 10/02/2023 3:21 PM EDT Gabriela Sanabria PA-C LAB - BLOOD DRAW Final Resul t [facility] [address] [address], [facility] [address] [address] * Hep C Ab w/Rflx (12/26/2022 4:02 PM EDT) HEPATITIS C ANTIBODY NON-REACT ELIJAH NON-REACT ELIJAH [facility] Comment: HCV antibody was non-reactive. There is no laboratory evidence of HCV infection. In most cases, no further action is required. However, if recent HCV exposure is suspected, a test for HCV RNA (test code 78153) is suggested. For additional information please refer to http://education.efw-suhl/faq/RQA93x4 (This link is being provided for informational/ educational purposes only.) Blood Blood / Unknown 12/26/2022 4 :02 PM EDT 12/26/2022 4:02 PM EDT Gabriela Sanabria PA-C LAB - BLOOD DRAW Edited Resu lt - Final [facility] [address] [place] [address], [facility] [address] [place] [id number] * THINPREP PAP & HPV MRNA E6/E7 RFLX HPV 16,18/[address]/NG (06/14/2022 7:00 PM EST) CHLAMYDIA TRACHOMATIS RNA, TMA NOT DETECTED NOT DETECTED [facility] NEISSERIA GONORRHOEAE RNA, TMA NOT DETECTED NOT DETECTED [facility] COMMENT [facility] CLINICAL INFORMATION See Note [facility] Comment:Routine exam LMP See Note [facility] Comment:[id number] PREV. PAP See Note [facility] Comment:NONE GIVEN PREV. BX See Note [facility] Comment:NONE GIVEN SOURCE See Note [facility] Comment:Cervix STATEMENT OF ADEQUACY See Note [facility] Comment: Satisfactory for evaluation. Endocervical/transformation zone component present. INTERPRETATION/RESU LT See Note [employer] [employer] Comment:Negative for intraep ithelial lesion or malignancy. PLANT MAINTENANCE MANAGER See Note [facility] [employer] Comment: RXB, CT(ASCP) CT screening location: [address] [address] COMMENT [employer] HPV MRNA E6/E7 Not Detected Not Detected [facility] [employer] Comment: Methodology: Junior Analyst-Mediated Amplification This assay detects E6/E7 viral messenger RNA (mRNA) from 14 high-risk HPV types (16,18,31,33,35,39,45,51,52,56,58,59,66,68). Cervical sources are required for HPV testing. If a vaginal source from a patient who has had a total hysterectomy with removal of cervix was submitted, please contact the testing laboratory for alternative testing options. For additional information, please refer to http://education.efw-suhl/faq/PCL835m9 (This link if provided for information/ educational purposes only.) CYTOLOGY Cervix uteri structure / Unknown 06/14/2022 7:00 PM EST 06/18/2022 10:08 AM EDT Narrative [facility] - 06/20/2022 9:59 AM EDT EXPLANATORY NOTE: [...] test Sure[facility](TM) specimens have been determined by [facility]. The modifications have not been cleared or approved by the FDA. This assay has been validated pursuant to the CLIA regulations and is used for clinical purposes. For additional information, please refer to https://ViRTUAL INTERACTiVE.efw-suhl/faq/UEB855 (This link is being provided for information/ educational purposes only.) Naga Mayo MD LAB - PATHOLOGY AND CYTOLOGY AMB ULATORY Final Result [facility] [address] [address], [facility] [address] [place] [address] * HIV 1/2 AG & AB W/RFLX (4TH GEN) (04/10/2022 10:37 AM EST) HIV AG/AB, 4TH GEN NON-REAC TIVE NON-REAC TIVE [facility] Comment: HIV-1 antigen and HIV-1/HIV-2 antibodies were [...] purpose. For additional information please refer to http://education.efw-suhl/faq/ZNS720 (This link is being provided for informational/ educational purposes only.) The performance of this assay has not been clinically validated in patients less than 2 years old. Blood Blood / Unknown 04/10/2022 1 0:37 AM EST 04/10/2022 10:38 AM EST Narrative [facility] - 04/11/2022 2:45 AM EST FASTING:YES us Corona Olivares MD LAB - BLOOD DRAW Final Result [facility] [address] [place] [address], [facility] [address] ([address]) [place] [address] from Last 3 Months or Most Recently Relevant to Health Maintenance Insurance [place] [employer] Member Subscriber Plan / Payer (Ef fective 2024-Present) Name:Francy Ospina Relation to Subscriber:Self Name:Francy Ospina Payer ID:[id number] Type:Indemnity Address: [address] [address] [place] [address] Care Teams Data Processing Systems Consultant Relationship Specialty Start Date End Date Gabriela Sanabria PA-C [address] [place] [address] PCP - General FAMILY MEDICINEMARGARITA 12/26/22
== END 2024-11-23 14:30 | disposition home or self-care (01) ==
LOC: HO.HOS 13:56
DX: M65.322 Trigger finger, left index finger (principal)
CPT/HCPCS: 99024

== ENCOUNTER → 2024-11-23 13:55 | Outpatient (BNVA) | payer OTHER, SELFPAY | DX: M65.322 Trigger finger, left index finger (principal) | CPT/HCPCS: 99212 ==